=== PATIENT | male | born 1935 | race Caucasian/White ===

== ENCOUNTER 2018-02-08 20:21 | Inpatient (IN) | payer MEDICARE, OTHER ==
[~2018-02-08] VITALS: Ht 170.2 cm; Wt 75.8 kg
[2018-02-08] MEDS ORDERED: AMLODIPINE BESYL5 MG ORAL (20:27)
[2018-02-08] MEDS ORDERED: IPRATROPIU0.2 MG/1 M HHN (20:27)
[2018-02-08] MEDS ORDERED: MINERAL OIL25 ML TP (20:27)
[2018-02-08] MEDS ORDERED: VITAMIN D1000 UNI1 ORAL (20:27)
[2018-02-08] MEDS ORDERED: PRAVASTATIN SOD20 M1 ORAL (20:27)
[2018-02-08] MEDS ORDERED: SINEMET 25-1001 EAC1 ORAL (20:27)
[2018-02-08] MEDS ORDERED: EXELON1 EACH TD (20:27)
[2018-02-08] MEDS ORDERED: ZANTAC150 MG ORAL (20:29)
[2018-02-08] MEDS ORDERED: PLAVIX75 MG ORAL (20:29)
[2018-02-08] MEDS ORDERED: DEXILANT60 MG ORAL (20:29)
[2018-02-08] MEDS ORDERED: ATORVASTATIN CA20 MG ORAL (20:29)
[2018-02-08 21:16] LABS: HEMATOCRIT 42.4 % (42.0-52.0); HEMOGLOBIN 14.5 G/DL (14.2-18.0); MEAN CORPUSCULAR VOLUME 92 FL (80-99); PLATELET COUNT 160 K/UL (150-450); RED BLOOD COUNT 4.63 M/UL (4.70-6.10); WHITE BLOOD COUNT 2.4 K/UL (4.8-10.8)
[2018-02-08 21:26] LABS: ANION GAP 13 mmol/L (5-15); BLOOD UREA NITROGEN 46 mg/dL (7-18); CALCIUM 9.6 MG/DL (8.5-10.1); CARBON DIOXIDE 26 MMOL/L (21-32); CHLORIDE 105 MMOL/L (98-107); CREATININE 2.4 MG/DL (0.55-1.30); POTASSIUM 4.2 MMOL/L (3.5-5.1); SODIUM 143 MMOL/L (136-145)
[2018-02-08 21:40] LABS: ALANINE AMINOTRANSFERASE 24 U/L (12-78); ALBUMIN 2.6 G/DL (3.4-5.0); ALBUMIN/GLOBULIN RATIO 0.6 (1.0-2.7); ALKALINE PHOSPHATASE 103 U/L (46-116); ASPARTATE AMINO TRANSFERASE 51 U/L (15-37); BILIRUBIN,TOTAL 1.5 MG/DL (0.2-1.0); CKMB 2.9 NG/ML (0.0-3.6); CREATINE KINASE 734 U/L (26-308)
[2018-02-08 21:41] LABS: BILIRUBIN,DIRECT 0.5 MG/DL (0.0-0.3)
[2018-02-08] MEDS ORDERED: Ampicillin/Sulbactam Sod 3 GM in NS 110 ML IVPB ONE (22:00)
[2018-02-08] MEDS ORDERED: Vancomycin 1.5gm/D5W 250ml 250 ML IVPB ONE (23:30)
--- NOTE | 2018-02-08 23:41 | Emergency Room Report ---
History of Present Illness General Chief Complaint: Dyspnea/Respdistress Source: Medical Record Present Illness HPI Patient is a 82-year-old male brought in by EMS after decreased oxygen saturation. The [facility] was [facility]. Patient was noted to have prior history of severe dementia. He was noted to have the slightly increased altered mental status and increased difficulty with respirations. Patient was noted to have low oxygen saturation was started on supplemental oxygen by EMS. The patient had prior history of aspiration pneumonia. Allergies: Coded Allergies: No Known Allergies (Unverified , 02/08/18) Patient History Past Medical History: see triage record Reviewed Nursing Documentation: PMH: Agreed; PSxH: Agreed Nursing Documentation-PMH Hx Hypertension: Yes - hyperlipidemia, anemia, biliary stent obstruction Review of Systems All Other Systems: limited - by mental status Physical Exam Vital Signs Date Time Temp Pulse Resp B/P (MAP) Pulse Ox O2 Delivery O2 Flow Rate FiO2 02/08/18 20:21 99.0 97 12 130/79 90 Non-Rebreather 10.0 99.0 02/08/18 22:33 100 Sp02 EP Interpretation: reviewed, normal General Appearance: normal inspection, alert, moderate distress, thin, Chronically Ill Head: atraumatic ENT: normal voice, uvula midline, dry mucus membranes Neck: normal inspection, supple, no bony tend, limited range of motion Respiratory: normal inspection, no retraction, decreased breath sounds Cardiovascular #1: no edema, tachycardia, irregularly irregular Gastrointestinal: soft, tenderness Genitourinary: no CVA tenderness Musculoskeletal: normal inspection, back normal Neurologic: normal inspection, motor weakness, other - nonverbal Psychiatric: other - flat affect Skin: normal inspection, normal color, no rash Medical Decision Making Diagnostic Impression: Primary Impression: Pneumonia Additional Impressions: Lactic acid acidosis Hypoxemia Acute renal failure Atrial fibrillation ER Course Patient presented for desaturation. Differential included but was not limited to anemia, pneumonia, pneumothorax, myocardial infarction, pericardial effusion , congestive heart failure, acidosis. Because of complexity of patient's case laboratory testing and imaging studies were ordered. Laboratory testing was notable for low white blood count and bandemia consistent with acute infection. The patient started on IV antibiotics. The patient was started on IV fluids and BiPAP. Patient was discussed with Dr. Lopze who requested patient be admitted to Dr. Rueda. Dr. Rueda was contacted for inpatient management due to complexity of medical condition. Labs Test 02/08/18 20:40 02/08/18 20:43 White Blood Count 2.4 K/UL (4.8-10.8) Red Blood Count 4.63 M/UL (4.70-6.10) Hemoglobin 14.5 G/DL (14.2-18.0) Hematocrit 42.4 % (42.0-52.0) Mean Corpuscular Volume 92 FL (80-99) Mean Corpuscular Hemoglobin 31.3 PG (27.0-31.0) Mean Corpuscular Hemoglobin Concent 34.1 G/DL (32.0-36.0) Red Cell Distribution Width 13.0 % (11.6-14.8) Platelet Count 160 K/UL (150-450) Mean Platelet Volume 8.3 FL (6.5-10.1) Neutrophils (%) (Auto) % (45.0-75.0) Lymphocytes (%) (Auto) % (20.0-45.0) Monocytes (%) (Auto) % (1.0-10.0) Eosinophils (%) (Auto) % (0.0-3.0) Basophils (%) (Auto) % (0.0-2.0) Differential Total Cells Counted 100 Neutrophils % (Manual) 27 % (45-75) Lymphocytes % (Manual) 36 % (20-45) Monocytes % (Manual) 8 % (1-10) Eosinophils % (Manual) 0 % (0-3) Basophils % (Manual) 0 % (0-2) Metamyelocytes % 3 % (0-0) Band Neutrophils 26 % (0-8) Nucleated Red Blood Cells 2 /100 WBC Platelet Estimate Adequate Platelet Morphology Normal Clumped Platelets Occasional Polychromasia 1+ Sodium Level 143 MMOL/L (136-145) Potassium Level 4.2 MMOL/L (3.5-5.1) Chloride Level 105 MMOL/L (98-107) Carbon Dioxide Level 26 MMOL/L (21-32) Anion Gap 13 mmol/L (5-15) Blood Urea Nitrogen 46 mg/dL (7-18) Creatinine 2.4 MG/DL (0.55-1.30) Estimat Glomerular Filtration Rate mL/min (>60) Glucose Level 187 MG/DL (74-106) Lactic Acid Level 6.60 mmol/L (0.66-2.22) Calcium Level 9.6 MG/DL (8.5-10.1) Total Bilirubin 1.5 MG/DL (0.2-1.0) Direct Bilirubin 0.5 MG/DL (0.0-0.3) Aspartate Amino Transf (AST/SGOT) 51 U/L (15-37) Alanine Aminotransferase (ALT/SGPT) 24 U/L (12-78) Alkaline Phosphatase 103 U/L (46-116) Total Creatine Kinase 734 U/L (26-308) Creatine Kinase MB 2.9 NG/ML (0.0-3.6) Creatine Kinase MB Relative Index 0.3 Troponin I 0.021 ng/mL (0.000-0.056) Total Protein 6.7 G/DL (6.4-8.2) Albumin 2.6 G/DL (3.4-5.0) Globulin 4.1 g/dL Albumin/Globulin Ratio 0.6 (1.0-2.7) Arterial Blood pH 7.480 (7.350-7.450) Arterial Blood Partial Pressure CO2 27.5 mmHg (35.0-45.0) Arterial Blood Partial Pressure O2 66.5 mmHg (75.0-100.0) Arterial Blood HCO3 20.1 mmol/L (22.0-26.0) Arterial Blood Oxygen Saturation 92.7 % (92.0-98.0) Arterial Blood Base Excess -1.9 Isaias Test Positive EKG Diagnostic Results Rate: tachycardiac Rhythm: other - afib Chest X-Ray Diagnostic Results Chest X-Ray Diagnostic Results : Chest X-Ray Ordered: Yes # of Views/Limited/Complete: 1 View Indication: Shortness of Breath EP Interpretation: Yes Interpretation: no effusion, no pneumothorax, other - bilateral infiltrates Impression: Other Electronically Signed by: Electronically signed by Dr. Kp Robin M.D. Last Vital Signs Date Time Temp Pulse Resp B/P (MAP) Pulse Ox O2 Delivery O2 Flow Rate FiO2 02/08/18 22:35 116 24 Bi-pap 100 02/08/18 22:33 94 02/08/18 20:33 10.0 02/08/18 20:21 99.0 130/79 99.0 Status: unchanged Disposition: ADMITTED INPATIENT Condition: Critical Referrals: Jose Lopez MD (PCP) Kp Robin Feb 08, 2018 23:41
[2018-02-08] MEDS ORDERED: NS 1000ml 2,200 ML IVLG ONE (23:45)
[2018-02-09] VITALS (27 sets, daily range): BP systolic 77–152; BP diastolic 30–98
[2018-02-09] MEDS ORDERED: Albuterol/Ipratropium 3ml neb HHN PRN (00:15)
[2018-02-09] MEDS ORDERED: LORazepam Inj 2mg/ml 1ml IV PRN (00:15)
[2018-02-09] MEDS ORDERED: Miralax 17gm pkt ORAL PRN (00:15)
[2018-02-09] MEDS ORDERED: Morphine Sulfate 4mg/ml Inj IVP PRN (00:15)
[2018-02-09] MEDS ORDERED: dilTIAZem HCl 25mg/5ml Inj IVP ONE ×3 (00:45→02:00)
[2018-02-09] MEDS ORDERED: dilTIAZem HCl 125mg/25ml Inj IVPB ONE (00:46)
[2018-02-09] MEDS ORDERED: Digoxin 0.5mg/2ml Inj IVP ONE ×2 (00:50→01:00)
[2018-02-09 01:39] LABS: APPEARANCE,URINE CLOUDY; BILIRUBIN, URINE 1+ (NEGATIVE); GLUCOSE, URINE (UA) 1+ (NEGATIVE); KETONES,URINE 1+ (NEGATIVE); LEUKOCYTE ESTERASE ,URINE 1+ (NEGATIVE); NITRITE,URINE NEGATIVE (NEGATIVE); PH,URINE 5 (4.5-8.0); PROTEIN,URINE 3+ (NEGATIVE); UROBILINOGEN,URINE 1 MG/DL (0.0-1.0)
[2018-02-09 02:14] LABS: COLOR,URINE YELLOW
[2018-02-09] MEDS ORDERED: Cefepime 1gm in D5W 55ml IVPB SCH ×2 (03:00→09:00)
[2018-02-09] MEDS: dilTIAZem HCl 25mg/5ml Inj IV PRN ×3 (03:32→09:57)
[2018-02-09] MEDS: Heparin 5000 units/ml inj SUBQ SCH ×2 (08:59→20:27)
[2018-02-09] MEDS ORDERED: Cefepime HCl 2 GM in D5W 110 ML IV SCH (09:00)
--- NOTE | 2018-02-09 10:11 | History and Physical ---
History of Present Illness General Date patient seen: Feb 09, 2018 Reason for Hospitalization: Dyspnea/Respdistress Present Illness HPI 82-year-old male with hx of Parkinson disease, Dementia, afib, pressure Ulcer brought in from a longterm by EMS with CC of decreased oxygen saturation. He was in respiratory failure and was diagnosed to have bilateral pneumonia. He had low oxygen saturation, then was started on supplemental oxygen by EMS. He was put on BIPAP in ER which helped the oxygenation somewhat. He is transferred to ICU for further treatment. Allergies: Coded Allergies: No Known Allergies (Unverified , 02/08/18) Medication History Scheduled Amlodipine Besylate* (Amlodipine Besylate*), 5 MG ORAL DAILY, (Reported) Atorvastatin Calcium* (Atorvastatin Calcium*), 20 MG ORAL BEDTIME, (Reported) Carbidopa/Levodopa 25-100 Mg* (Sinemet 25-100 Mg Tablet*), 1 TAB ORAL BID, ( Reported) Cholecalciferol (Vitamin D3)* (Vitamin D*), 2,000 UNITS ORAL DAILY, (Reported) Clopidogrel Bisulfate* (Plavix*), 75 MG ORAL DAILY, (Reported) Dexlansoprazole (Dexilant), 60 MG ORAL DAILY, (Reported) Pravastatin Sod* (Pravastatin Sod*), 80 MG ORAL BEDTIME, (Reported) Ranitidine Hcl* (Zantac*), 300 MG ORAL DAILY, (Reported) Scheduled PRN Ipratropium [place] 0.5MG/2.5ML (Ipratropium [place] 0.5MG/2.5ML), 0.5 MG HHN Q6H PRN for Shortness of Breath, (Reported) Miscellaneous Medications Mineral Oil (Mineral Oil), 30 ML TP, (Reported) Rivastigmine (Exelon), 1 EACH TD, (Reported) Patient History Healthcare decision maker TATI AGUILAR Resuscitation status Do Not Resuscitate Advanced Directive on File No Past Medical/Surgical History Past Medical/Surgical History: (1) Parkinson disease (2) Dementia (3) Atrial fibrillation Review of Systems All Other Systems: negative except mentioned in HPI Physical Exam General Appearance: cachetic Lines, tubes and drains: peripheral HEENT: normocephalic, atraumatic Neck: non-tender, normal alignment Respiratory/Chest: chest wall non-tender, lungs clear, rhonchi - left, rhonchi - right Breasts: no masses Cardiovascular/Chest: normal peripheral pulses Abdomen: normal bowel sounds Genitourinary/Rectal: normal genital exam Extremities: normal range of motion Last 24 Hour Vital Signs Date Time Temp Pulse Resp B/P (MAP) Pulse Ox O2 Delivery O2 Flow Rate FiO2 02/09/18 09:57 168 120/29 02/09/18 09:25 146 35 Full Face 100 02/09/18 09:00 146 35 99/62 91 Bi-pap 100 02/09/18 08:41 100.4 02/09/18 08:00 100 02/09/18 08:00 151 34 99/64 96 Bi-pap 100 02/09/18 07:55 158 109/65 02/09/18 07:25 153 35 Facial 100 02/09/18 07:00 100.4 140 29 109/65 94 Bi-pap 100 100.4 02/09/18 06:00 147 32 116/77 96 Bi-pap 100 02/09/18 05:30 153 32 103/57 92 Bi-pap 100 02/09/18 05:00 98.9 144 29 79/41 95 Bi-pap 100 98.9 02/09/18 04:56 142 29 Facial 100 02/09/18 04:30 144 30 86/72 90 Bi-pap 100 02/09/18 04:00 136 29 77/53 90 Bi-pap 100 02/09/18 03:32 151 141/88 02/09/18 03:30 148 30 141/88 90 Bi-pap 100 02/09/18 03:00 145 26 141/98 90 Bi-pap 100 02/09/18 03:00 150 02/09/18 03:00 100 02/09/18 02:45 98.8 150 28 152/86 90 Bi-pap 100 98.8 02/09/18 02:39 163 33 Facial 100 02/09/18 02:30 88/56 02/09/18 02:30 100.0 132 32 89/59 98 Bi-pap 100.0 02/09/18 02:16 184 02/09/18 02:14 174 109/78 02/09/18 01:02 188 02/09/18 01:01 182 102/33 02/09/18 00:53 130 32 98 Facial 100 02/09/18 00:45 98.0 188 32 102/89 98 Bi-pap 98.0 02/08/18 22:35 116 24 Bi-pap 100 02/08/18 22:33 116 24 94 Facial 100 02/08/18 20:33 97 12 Non-Rebreather 10.0 02/08/18 20:21 99.0 97 12 130/79 90 Non-Rebreather 10.0 99.0 Intake and Output 02/08/18 02/09/18 19:00 07:00 Intake Total 100 ml Output Total 60 ml Balance 40 ml Intake Oral 0 ml IV Total 100 ml Output Urine Total 60 ml Laboratory Tests Test 02/08/18 20:40 02/08/18 20:43 02/09/18 01:20 02/09/18 01:58 White Blood Count 2.4 K/UL (4.8-10.8) L Red Blood Count 4.63 M/UL (4.70-6.10) L Hemoglobin 14.5 G/DL (14.2-18.0) Hematocrit 42.4 % (42.0-52.0) Mean Corpuscular Volume 92 FL (80-99) Mean Corpuscular Hemoglobin 31.3 PG (27.0-31.0) H Mean Corpuscular Hemoglobin Concent 34.1 G/DL (32.0-36.0) Red Cell Distribution Width 13.0 % (11.6-14.8) Platelet Count 160 K/UL (150-450) Mean Platelet Volume 8.3 FL (6.5-10.1) Neutrophils (%) (Auto) % (45.0-75.0) Lymphocytes (%) (Auto) % (20.0-45.0) Monocytes (%) (Auto) % (1.0-10.0) Eosinophils (%) (Auto) % (0.0-3.0) Basophils (%) (Auto) % (0.0-2.0) Differential Total Cells Counted 100 Neutrophils % (Manual) 27 % (45-75) L Lymphocytes % (Manual) 36 % (20-45) Monocytes % (Manual) 8 % (1-10) Eosinophils % (Manual) 0 % (0-3) Basophils % (Manual) 0 % (0-2) Metamyelocytes % 3 % (0-0) H Band Neutrophils 26 % (0-8) H Nucleated Red Blood Cells 2 /100 WBC Platelet Estimate Adequate Platelet Morphology Normal Clumped Platelets Occasional Polychromasia 1+ Sodium Level 143 MMOL/L (136-145) Potassium Level 4.2 MMOL/L (3.5-5.1) Chloride Level 105 MMOL/L (98-107) Carbon Dioxide Level 26 MMOL/L (21-32) Anion Gap 13 mmol/L (5-15) Blood Urea Nitrogen 46 mg/dL (7-18) H Creatinine 2.4 MG/DL (0.55-1.30) H Estimat Glomerular Filtration Rate mL/min (>60) Glucose Level 187 MG/DL (74-106) H Lactic Acid Level 6.60 mmol/L (0.66-2.22) H 4.80 mmol/L (0.66-2.22) H Calcium Level 9.6 MG/DL (8.5-10.1) Total Bilirubin 1.5 MG/DL (0.2-1.0) H Direct Bilirubin 0.5 MG/DL (0.0-0.3) H Aspartate Amino Transf (AST/SGOT) 51 U/L (15-37) H Alanine Aminotransferase (ALT/SGPT) 24 U/L (12-78) Alkaline Phosphatase 103 U/L (46-116) Total Creatine Kinase 734 U/L (26-308) H Creatine Kinase MB 2.9 NG/ML (0.0-3.6) Creatine Kinase MB Relative Index 0.3 Troponin I 0.021 ng/mL (0.000-0.056) Total Protein 6.7 G/DL (6.4-8.2) Albumin 2.6 G/DL (3.4-5.0) L Globulin 4.1 g/dL Albumin/Globulin Ratio 0.6 (1.0-2.7) L Arterial Blood pH 7.480 (7.350-7.450) Arterial Blood Partial Pressure CO2 27.5 mmHg (35.0-45.0) L Arterial Blood Partial Pressure O2 66.5 mmHg (75.0-100.0) L Arterial Blood HCO3 20.1 mmol/L (22.0-26.0) L Arterial Blood Oxygen Saturation 92.7 % (92.0-98.0) Arterial Blood Base Excess -1.9 Isaias Test Positive Urine Color Yellow Urine Appearance Cloudy Urine pH 5 (4.5-8.0) Urine Specific [place] 1.025 (1.005-1.035) Urine Protein 3+ (NEGATIVE) H Urine Glucose (UA) 1+ (NEGATIVE) H Urine Ketones 1+ (NEGATIVE) H Urine Occult Blood 4+ (NEGATIVE) H Urine Nitrite Negative (NEGATIVE) Urine Bilirubin 1+ (NEGATIVE) H Urine Ictotest Positive Urine Urobilinogen 1 MG/DL (0.0-1.0) H Urine Leukocyte Esterase 1+ (NEGATIVE) H Urine RBC 0-2 /HPF (0 - 0) H Urine WBC 0-2 /HPF (0 - 0) Urine Squamous Epithelial Cells Few /LPF (NONE/OCC) Urine Amorphous Sediment Many /LPF (NONE) H Urine Bacteria Moderate /HPF (NONE) H Urine Coarse Granular Casts 5-10 /LPF (NONE) H Test 02/09/18 05:30 02/09/18 08:30 Lactic Acid Level 7.40 mmol/L (0.66-2.22) H Arterial Blood pH 7.080 (7.350-7.450) Arterial Blood Partial Pressure CO2 49.5 mmHg (35.0-45.0) H Arterial Blood Partial Pressure O2 58.5 mmHg (75.0-100.0) L Arterial Blood HCO3 14.4 mmol/L (22.0-26.0) L Arterial Blood Oxygen Saturation 78.5 % (92.0-98.0) L Arterial Blood Base Excess -15.4 Isaias Test Positive Height (Feet): 5 Height (Inches): 7.00 Weight (Pounds): 147 Medications Current Medications Medications (Trade) Dose Ordered Sig/Dax Route PRN Reason Start Time Stop Time Status Last Admin Dose Admin Acetaminophen (Tylenol) 650 mg Q4H PRN ORAL FEVER 02/09/18 00:15 03/11/18 00:14 02/09/18 08:41 Albuterol/ Ipratropium (Albuterol/ Ipratropium) 3 ml Q4H PRN HHN Shortness of Breath 02/09/18 00:15 02/14/18 00:14 Carbidopa/Levodopa (Sinemet 25/100) 1 tab BID ORAL 02/09/18 09:00 03/11/18 08:59 UNV Cefepime HCl 1 gm/ Dextrose 55 ml @ 110 mls/hr Q24H IVPB 02/09/18 09:00 02/16/18 08:59 02/09/18 08:57 Clopidogrel Bisulfate (Plavix) 75 mg DAILY ORAL 02/09/18 09:00 03/11/18 08:59 02/09/18 08:41 Dextrose (Dextrose 50%) 25 ml STAT PRN IV Hypoglycemia 02/09/18 08:45 03/11/18 00:14 Dextrose (Dextrose 50%) 50 ml STAT PRN IV Hypoglycemia 02/09/18 08:45 03/11/18 08:44 Diltiazem HCl (Cardizem) 10 mg Q1H PRN IV heart rate more than 120, 02/09/18 00:15 03/11/18 00:14 02/09/18 09:57 Heparin Sodium (Porcine) (Heparin 5000 units/ml) 5,000 units EVERY 12 HOURS SUBQ 02/09/18 09:00 03/11/18 08:59 02/09/18 08:59 Lorazepam (Ativan 2mg/ml 1ml) 2 mg Q2H PRN IV For Anxiety 02/09/18 00:15 02/16/18 00:14 Morphine Sulfate (Morphine Sulfate) 4 mg Q4H PRN IVP Severe Pain (Pain Scale 7-10) 02/09/18 00:15 02/16/18 00:14 Ondansetron HCl (Zofran) 4 mg Q6H PRN IVP Nausea & Vomiting 02/09/18 00:15 03/11/18 00:14 Polyethylene Glycol (Miralax) 17 gm DAILYPRN PRN ORAL Constipation 02/09/18 00:15 03/11/18 00:14 Sodium Chloride 1,000 ml @ 50 mls/hr Q20H IV 02/09/18 00:07 03/11/18 00:06 02/09/18 04:00 Vancomycin HCl (Vanco rx to dose) 1 ea DAILY PRN MISC PER RX PROTOCOL 02/09/18 08:45 03/11/18 08:44 Vancomycin HCl 1 gm/Dextrose 275 ml @ 183.3 mls/ hr Q24H IVPB 02/09/18 23:00 02/14/18 22:59 Assessment/Plan Problem List: (1) Acute respiratory failure ICD Codes: J96.00 - Acute respiratory failure, unspecified whether with hypoxia or hypercapnia SNOMED: 03942736 (2) Acute encephalopathy ICD Codes: G93.40 - Encephalopathy, unspecified SNOMED: 01313827, 449093694 (3) Atrial fibrillation ICD Codes: I48.91 - Unspecified atrial fibrillation SNOMED: 98783562 (4) Acute renal failure ICD Codes: N17.9 - Acute kidney failure, unspecified SNOMED: 19492111 (5) Parkinson disease ICD Codes: G20 - Parkinson's disease SNOMED: 84029553 (6) Dementia ICD Codes: F03.90 - Unspecified dementia without behavioral disturbance SNOMED: 05283861 Respiratory: monitor respiratory rate, adjust FIO2 Cardiac: continue to monitor HR/BP Renal: F/U I&O, keep IV fluid, check electrolytes Infectious Disease: check cultures Gastrointestinal: hold feedings Endocrine: monitor blood sugar Hematologic: monitor H/H, transfuse if hgb<8.5 Neurologic: PRN Ativan, PRN Morphine, keep patient comfortable Time Spent (Minutes): 40 Notes Reviewed: renal Discussed with: nurses, consultants, insurance case manager, family member Samra Rueda MD Feb 09, 2018 10:11
[2018-02-09 10:26] LABS: ANION GAP 15 mmol/L (5-15); BLOOD UREA NITROGEN 45 mg/dL (7-18); CALCIUM 7.9 MG/DL (8.5-10.1); CARBON DIOXIDE 17 MMOL/L (21-32); CHLORIDE 111 MMOL/L (98-107); CREATININE 2.3 MG/DL (0.55-1.30); POTASSIUM 4.5 MMOL/L (3.5-5.1); SODIUM 143 MMOL/L (136-145)
--- NOTE | 2018-02-09 10:34 | Diagnostic Imaging Report ---
Indication: Shortness of breath Technique: One view of the chest Comparison: none Findings: There are bilateral patchy and nodular interstitial and airspace opacities. The pleural spaces are clear. The heart size is normal. The aorta is tortuous and calcified. Impression: Bilateral patchy nodular interstitial and airspace opacities. Nonspecific, could represent inflammatory process, pulmonary edema, less likely neoplasm. Recommend follow-up radiographs as clinically indicated
[2018-02-09 10:37] LABS: ALANINE AMINOTRANSFERASE 21 U/L (12-78); ALBUMIN 1.8 G/DL (3.4-5.0); ALBUMIN/GLOBULIN RATIO 0.7 (1.0-2.7); ALKALINE PHOSPHATASE 77 U/L (46-116); ASPARTATE AMINO TRANSFERASE 56 U/L (15-37); BILIRUBIN,TOTAL 0.9 MG/DL (0.2-1.0); CREATINE KINASE 694 U/L (26-308); GAMMA GLUTAMYL TRANSPEPTIDASE 15 U/L (5-85); PHOSPHORUS 3.8 MG/DL (2.5-4.9)
[2018-02-09] MEDS ORDERED: Pantoprazole Inj IVP SCH (11:15)
--- NOTE | 2018-02-09 11:42 | Consultation ---
History of Present Illness General Date patient seen: Feb 09, 2018 Time patient seen: 11:23 Chief Complaint: Dyspnea/Respdistress Present Illness HPI 82 y/o M with hx of HTN, HLD, anemia, aspiration pneumonia, Parkinson disease/ dementia, Afib, pressure ulcer, biliary tract obstruction s/p stent, prison resident is brought to ED on 02/08 with hypoxia, increased AMS and SOB. In Ed placed on BIpap and admitted to ICU. Patient also developed rapid Afib. Tm 100.9, on Bipap, Leuopenia with >20% bandemia. Allergies: Coded Allergies: No Known Allergies (Unverified , 02/08/18) Medication History Scheduled Amlodipine Besylate* (Amlodipine Besylate*), 5 MG ORAL DAILY, (Reported) Atorvastatin Calcium* (Atorvastatin Calcium*), 20 MG ORAL BEDTIME, (Reported) Carbidopa/Levodopa 25-100 Mg* (Sinemet 25-100 Mg Tablet*), 1 TAB ORAL BID, ( Reported) Cholecalciferol (Vitamin D3)* (Vitamin D*), 2,000 UNITS ORAL DAILY, (Reported) Clopidogrel Bisulfate* (Plavix*), 75 MG ORAL DAILY, (Reported) Dexlansoprazole (Dexilant), 60 MG ORAL DAILY, (Reported) Pravastatin Sod* (Pravastatin Sod*), 80 MG ORAL BEDTIME, (Reported) Ranitidine Hcl* (Zantac*), 300 MG ORAL DAILY, (Reported) Scheduled PRN Ipratropium [place] 0.5MG/2.5ML (Ipratropium [place] 0.5MG/2.5ML), 0.5 MG HHN Q6H PRN for Shortness of Breath, (Reported) Miscellaneous Medications Mineral Oil (Mineral Oil), 30 ML TP, (Reported) Rivastigmine (Exelon), 1 EACH TD, (Reported) Patient History Healthcare decision maker TATI AGUILAR Resuscitation status Do Not Resuscitate Advanced Directive on File No Patient History Narrative PMhx: as above Shx: unable to obtain Fhx: non contributory Review of Systems ROS Narrative unable to obtain Physical Exam Physical Exam Narrative General Appearance: cachetic Lines, tubes and drains: peripheral HEENT: normocephalic, atraumatic Neck: non-tender, normal alignment Respiratory/Chest: chest wall non-tender, lungs clear, rhonchi - left, rhonchi - right Breasts: no masses Cardiovascular/Chest: normal peripheral pulses Abdomen: normal bowel sounds Extremities: normal range of motion Last 24 Hour Vital Signs Date Time Temp Pulse Resp B/P (MAP) Pulse Ox O2 Delivery O2 Flow Rate FiO2 02/09/18 10:59 146 35 91 Full Face 100 02/09/18 10:00 152 34 100/30 88 Bi-pap 100 02/09/18 09:57 168 120/29 02/09/18 09:40 100.9 02/09/18 09:25 146 35 Full Face 100 02/09/18 09:00 146 35 99/62 91 Bi-pap 100 02/09/18 08:41 100.4 02/09/18 08:00 100 02/09/18 08:00 151 34 99/64 96 Bi-pap 100 02/09/18 08:00 124 02/09/18 07:55 158 109/65 02/09/18 07:25 153 35 Facial 100 02/09/18 07:00 100.4 140 29 109/65 94 Bi-pap 100 100.4 02/09/18 06:00 147 32 116/77 96 Bi-pap 100 02/09/18 05:30 153 32 103/57 92 Bi-pap 100 02/09/18 05:00 98.9 144 29 79/41 95 Bi-pap 100 98.9 02/09/18 04:56 142 29 Facial 100 02/09/18 04:30 144 30 86/72 90 Bi-pap 100 02/09/18 04:00 136 29 77/53 90 Bi-pap 100 02/09/18 03:32 151 141/88 02/09/18 03:30 148 30 141/88 90 Bi-pap 100 02/09/18 03:00 145 26 141/98 90 Bi-pap 100 02/09/18 03:00 150 02/09/18 03:00 100 02/09/18 02:45 98.8 150 28 152/86 90 Bi-pap 100 98.8 02/09/18 02:39 163 33 Facial 100 02/09/18 02:30 88/56 02/09/18 02:30 100.0 132 32 89/59 98 Bi-pap 100.0 02/09/18 02:16 184 02/09/18 02:14 174 109/78 02/09/18 01:02 188 02/09/18 01:01 182 102/33 02/09/18 00:53 130 32 98 Facial 100 02/09/18 00:45 98.0 188 32 102/89 98 Bi-pap 98.0 02/08/18 22:35 116 24 Bi-pap 100 02/08/18 22:33 116 24 94 Facial 100 02/08/18 20:33 97 12 Non-Rebreather 10.0 02/08/18 20:21 99.0 97 12 130/79 90 Non-Rebreather 10.0 99.0 Intake and Output 02/08/18 02/09/18 19:00 07:00 Intake Total 150 ml Output Total 60 ml Balance 90 ml Intake Oral 0 ml IV Total 150 ml Output Urine Total 60 ml Laboratory Tests Test 02/08/18 20:40 02/08/18 20:43 02/09/18 01:20 02/09/18 01:58 White Blood Count 2.4 K/UL (4.8-10.8) L Red Blood Count 4.63 M/UL (4.70-6.10) L Hemoglobin 14.5 G/DL (14.2-18.0) Hematocrit 42.4 % (42.0-52.0) Mean Corpuscular Volume 92 FL (80-99) Mean Corpuscular Hemoglobin 31.3 PG (27.0-31.0) H Mean Corpuscular Hemoglobin Concent 34.1 G/DL (32.0-36.0) Red Cell Distribution Width 13.0 % (11.6-14.8) Platelet Count 160 K/UL (150-450) Mean Platelet Volume 8.3 FL (6.5-10.1) Neutrophils (%) (Auto) % (45.0-75.0) Lymphocytes (%) (Auto) % (20.0-45.0) Monocytes (%) (Auto) % (1.0-10.0) Eosinophils (%) (Auto) % (0.0-3.0) Basophils (%) (Auto) % (0.0-2.0) Differential Total Cells Counted 100 Neutrophils % (Manual) 27 % (45-75) L Lymphocytes % (Manual) 36 % (20-45) Monocytes % (Manual) 8 % (1-10) Eosinophils % (Manual) 0 % (0-3) Basophils % (Manual) 0 % (0-2) Metamyelocytes % 3 % (0-0) H Band Neutrophils 26 % (0-8) H Nucleated Red Blood Cells 2 /100 WBC Platelet Estimate Adequate Platelet Morphology Normal Clumped Platelets Occasional Polychromasia 1+ Sodium Level 143 MMOL/L (136-145) Potassium Level 4.2 MMOL/L (3.5-5.1) Chloride Level 105 MMOL/L (98-107) Carbon Dioxide Level 26 MMOL/L (21-32) Anion Gap 13 mmol/L (5-15) Blood Urea Nitrogen 46 mg/dL (7-18) H Creatinine 2.4 MG/DL (0.55-1.30) H Estimat Glomerular Filtration Rate mL/min (>60) Glucose Level 187 MG/DL (74-106) H Lactic Acid Level 6.60 mmol/L (0.66-2.22) H 4.80 mmol/L (0.66-2.22) H Calcium Level 9.6 MG/DL (8.5-10.1) Total Bilirubin 1.5 MG/DL (0.2-1.0) H Direct Bilirubin 0.5 MG/DL (0.0-0.3) H Aspartate Amino Transf (AST/SGOT) 51 U/L (15-37) H Alanine Aminotransferase (ALT/SGPT) 24 U/L (12-78) Alkaline Phosphatase 103 U/L (46-116) Total Creatine Kinase 734 U/L (26-308) H Creatine Kinase MB 2.9 NG/ML (0.0-3.6) Creatine Kinase MB Relative Index 0.3 Troponin I 0.021 ng/mL (0.000-0.056) Total Protein 6.7 G/DL (6.4-8.2) Albumin 2.6 G/DL (3.4-5.0) L Globulin 4.1 g/dL Albumin/Globulin Ratio 0.6 (1.0-2.7) L Arterial Blood pH 7.480 (7.350-7.450) Arterial Blood Partial Pressure CO2 27.5 mmHg (35.0-45.0) L Arterial Blood Partial Pressure O2 66.5 mmHg (75.0-100.0) L Arterial Blood HCO3 20.1 mmol/L (22.0-26.0) L Arterial Blood Oxygen Saturation 92.7 % (92.0-98.0) Arterial Blood Base Excess -1.9 Isaias Test Positive Urine Color Yellow Urine Appearance Cloudy Urine pH 5 (4.5-8.0) Urine Specific [place] 1.025 (1.005-1.035) Urine Protein 3+ (NEGATIVE) H Urine Glucose (UA) 1+ (NEGATIVE) H Urine Ketones 1+ (NEGATIVE) H Urine Occult Blood 4+ (NEGATIVE) H Urine Nitrite Negative (NEGATIVE) Urine Bilirubin 1+ (NEGATIVE) H Urine Ictotest Positive Urine Urobilinogen 1 MG/DL (0.0-1.0) H Urine Leukocyte Esterase 1+ (NEGATIVE) H Urine RBC 0-2 /HPF (0 - 0) H Urine WBC 0-2 /HPF (0 - 0) Urine Squamous Epithelial Cells Few /LPF (NONE/OCC) Urine Amorphous Sediment Many /LPF (NONE) H Urine Bacteria Moderate /HPF (NONE) H Urine Coarse Granular Casts 5-10 /LPF (NONE) H Test 02/09/18 05:30 02/09/18 08:30 02/09/18 11:00 Sodium Level 143 MMOL/L (136-145) Potassium Level 4.5 MMOL/L (3.5-5.1) Chloride Level 111 MMOL/L (98-107) H Carbon Dioxide Level 17 MMOL/L (21-32) L Anion Gap 15 mmol/L (5-15) Blood Urea Nitrogen 45 mg/dL (7-18) H Creatinine 2.3 MG/DL (0.55-1.30) H Estimat Glomerular Filtration Rate mL/min (>60) Glucose Level 153 MG/DL (74-106) H Lactic Acid Level 7.40 mmol/L (0.66-2.22) H Pending Uric Acid 3.9 MG/DL (2.6-7.2) Calcium Level 7.9 MG/DL (8.5-10.1) L Phosphorus Level 3.8 MG/DL (2.5-4.9) Magnesium Level 1.8 MG/DL (1.8-2.4) Total Bilirubin 0.9 MG/DL (0.2-1.0) Gamma Glutamyl Transpeptidase 15 U/L (5-85) Aspartate Amino Transf (AST/SGOT) 56 U/L (15-37) H Alanine Aminotransferase (ALT/SGPT) 21 U/L (12-78) Alkaline Phosphatase 77 U/L (46-116) Total Creatine Kinase 694 U/L (26-308) H Troponin I 0.044 ng/mL (0.000-0.056) C-Reactive Protein, Quantitative 30.4 mg/dL (0.00-0.90) H Pro-B-Type Natriuretic Peptide 4579 pg/mL (0-125) H Total Protein 4.5 G/DL (6.4-8.2) #L Albumin 1.8 G/DL (3.4-5.0) L Globulin 2.7 g/dL Albumin/Globulin Ratio 0.7 (1.0-2.7) L Arterial Blood pH 7.080 (7.350-7.450) Arterial Blood Partial Pressure CO2 49.5 mmHg (35.0-45.0) H Arterial Blood Partial Pressure O2 58.5 mmHg (75.0-100.0) L Arterial Blood HCO3 14.4 mmol/L (22.0-26.0) L Arterial Blood Oxygen Saturation 78.5 % (92.0-98.0) L Arterial Blood Base Excess -15.4 Isaias Test Positive Height (Feet): 5 Height (Inches): 7.00 Weight (Pounds): 147 Medications Current Medications Medications (Trade) Dose Ordered Sig/Dax Route PRN Reason Start Time Stop Time Status Last Admin Dose Admin Acetaminophen (Tylenol) 650 mg Q4H PRN ORAL FEVER 02/09/18 00:15 03/11/18 00:14 02/09/18 08:41 Albuterol/ Ipratropium (Albuterol/ Ipratropium) 3 ml Q4H PRN HHN Shortness of Breath 02/09/18 00:15 02/14/18 00:14 Carbidopa/Levodopa (Sinemet 25/100) 1 tab BID ORAL 02/09/18 09:00 03/11/18 08:59 UNV Cefepime HCl 1 gm/ Dextrose 55 ml @ 110 mls/hr Q24H IVPB 02/09/18 09:00 02/16/18 08:59 02/09/18 08:57 Clopidogrel Bisulfate (Plavix) 75 mg DAILY ORAL 4/26/18 09:00 03/11/18 08:59 02/09/18 08:41 Dextrose (Dextrose 50%) 25 ml STAT PRN IV Hypoglycemia 02/09/18 08:45 03/11/18 00:14 Dextrose (Dextrose 50%) 50 ml STAT PRN IV Hypoglycemia 02/09/18 08:45 03/11/18 08:44 Diltiazem HCl (Cardizem) 10 mg Q1H PRN IV heart rate more than 120, 02/09/18 00:15 03/11/18 00:14 02/09/18 09:57 Heparin Sodium (Porcine) (Heparin 5000 units/ml) 5,000 units EVERY 12 HOURS SUBQ 02/09/18 09:00 03/11/18 08:59 02/09/18 08:59 Lorazepam (Ativan 2mg/ml 1ml) 2 mg Q2H PRN IV For Anxiety 02/09/18 00:15 02/16/18 00:14 Morphine Sulfate (Morphine Sulfate) 4 mg Q4H PRN IVP Severe Pain (Pain Scale 7-10) 02/09/18 00:15 02/16/18 00:14 Ondansetron HCl (Zofran) 4 mg Q6H PRN IVP Nausea & Vomiting 02/09/18 00:15 03/11/18 00:14 Pantoprazole (Protonix) 40 mg DAILY IVP 02/10/18 09:00 03/12/18 08:59 Pantoprazole (Protonix) 40 mg ONCE IVP 02/09/18 11:15 02/09/18 13:00 Polyethylene Glycol (Miralax) 17 gm DAILYPRN PRN ORAL Constipation 02/09/18 00:15 03/11/18 00:14 Sodium Chloride 1,000 ml @ 50 mls/hr Q20H IV 02/09/18 00:07 03/11/18 00:06 02/09/18 04:00 Vancomycin HCl (Vanco rx to dose) 1 ea DAILY PRN MISC PER RX PROTOCOL 02/09/18 08:45 03/11/18 08:44 Vancomycin HCl 1 gm/Dextrose 275 ml @ 183.3 mls/ hr Q24H IVPB 02/09/18 23:00 02/14/18 22:59 Assessment/Plan Assessment/Plan Abx: Unasyn x1 02/08 Cefepime 02/09- IV Vanco 02/08- Assessment: Severe sepsis- likely 2ry to PNA (Asp vs HCAP)- r/o bacteremia, r/o Flu -u/a WBC 0-2; ucx p -Bcx p -sp cx p -CXR: Bilateral patchy nodular interstitial and airspace opacities. Nonspecific, could represent inflammatory process, pulmonary edema, less likely neoplasm. Acute hypoxic resp failure- on bipap Lactic acidosis Low grade fever Leukopenia/bandemia ARI AFIB with RVR HTN HLD anemia aspiration pneumonia Parkinson disease/dementia pressure ulcer biliary tract obstruction s/p stent [facility] resident Plan: -Continue empiric IV Vancomcyin #2 and switch Cefepime #1 to Zosyn -Give one time dose of Amikacin -Start empiric Tamiflu pending influenza sc -f/u cx -Monitor CBC/BMP, temperatures -ICU care -Aspiration precautions -Trend lactic acid Thank you for this consultation. WIll continue to follow along with you. Discussed with Jailene Matias M.D. Feb 09, 2018 11:42
--- NOTE | 2018-02-09 11:43 | Diagnostic Imaging Report ---
Indication: Shortness of breath Technique: One view of the chest Comparison: 4 1/2 hours earlier the pleural spaces are probably clear. The heart size is upper limits of normal. Findings: There is marked increased dense consolidation of both mid and lower lungs bilaterally Impression: Marked worsening of bilateral infiltrates versus edema, over 4 1/2 hours
[2018-02-09] MEDS ORDERED: Amikacin Rx to dose MISC SCH (11:45)
--- NOTE | 2018-02-09 13:53 | Consultation ---
Consult Note Consult Note asked to evaluate for renal failure- Patient is a 82-year-old male brought in by EMS after decreased oxygen saturation. The patient was sent in from long-term. Patient was noted to have prior history of severe dementia. He was noted to have the slightly increased altered mental status and increased difficulty with respirations. Patient was noted to have low oxygen saturation was started on supplemental oxygen by EMS. The patient had prior history of aspiration pneumonia. patient examined in ICU - Data reviewed- discussed with and 2 Sons . Assessment/Plan Sepsis, CXR: Bilateral patchy nodular interstitial and airspace opacities. Nonspecific, could represent inflammatory process, pulmonary edema, less likely neoplasm. lactic Acidosis Acute respiratory failure, on BIPAP , Hypoxic Renal failure, acute on Chronic + Oliguria AFibwith FVR Parkinson disease/dementia pressure ulcer biliary tract obstruction s/p stent long-term resident Plan: Kidney REKHA 2D Echo Flomax Hemodynamic support Vancomcyin Cefepime one time dose of Amikacin empiric Tamiflu pending influenza sc monitor renal parameters -ICU care -Aspiration precautions -Trend lactic acid discussed with family poor prognosis HENRIETTA LYON Feb 09, 2018 13:53
[2018-02-09] MEDS ORDERED: [UNRECOGNIZED DRUG - OTHER] IV ONE (14:30)
[2018-02-09] MEDS: Piperacillin/Tazobactam 3.375 GM in D5W 110 ML IVPB SCH ×2 (14:41→21:48)
--- NOTE | 2018-02-09 15:01 | Diagnostic Imaging Report ---
Indication: Nasogastric tube placement Technique: One view of the chest Comparison: none Findings: There is a nasogastric tube, tip which projects over the right lower lung, presumably having undergone the right mainstem bronchus. Bilateral infiltrates are again demonstrated. Impression: Malpositioned nasogastric tube, tip in the right lung. ICU nurse Haleigh notified of this critical value at the time of interpretation
--- NOTE | 2018-02-09 16:29 | Diagnostic Imaging Report ---
Indication: Acute renal failure Technique: Grayscale and duplex images of the kidneys, retroperitoneum, and bladder were obtained. Comparison: none Findings: Right kidney measures 11.7 cm in length. Left kidney measures 10.7 cm in length. Both kidneys demonstrate normal echogenicity. No hydronephrosis. There are bilateral renal cysts. The left kidney demonstrates a large upper pole cyst which measures 11.5 cm long axis dimension smaller right renal cyst noted, measuring 10 mm long axis dimension. The inferior vena cava could not be demonstrated due to patient body habitus. Bladder is empty, the nasal Ruiz catheter. Impression: Negative for hydronephrosis Empty bladder with Ruiz catheter. Large left renal cyst, small right renal cyst incidentally noted.
[2018-02-09] MEDS: Tamsulosin 0.4mg cap ORAL SCH (17:52)
[2018-02-09] MEDS ORDERED: LEVODOPA ORAL SCH (18:00)
[2018-02-09] MEDS ORDERED: CARBIDOPA ORAL SCH (18:00)
[2018-02-09] MEDS ORDERED: Levodopa/Carbidopa 25/100 tab ORAL SCH (18:00)
--- NOTE | 2018-02-09 18:32 | General Progress Note ---
Assessment/Plan Assessment/Plan SEPSIS ON IV ABTX ASPIRATION PNEUMONIA PT HAS POOR PROGNOSIS POOR URINE OUTPUT [facility]CUSE[facility] WITH [facility] Subjective Allergies: Coded Allergies: No Known Allergies (Unverified , 02/08/18) Subjective ICU CRITICARE NOTE PATIENT WAS BROUGHT INTO THE HOSPITAL FOR HYPOXIA AND SEPSIS CURRENTLY HE HAS HIS EYES CLOSED AND DOESNOT RESPONDS TO QUESTIONS HE HAS HISTORY OF DEMENTIA AND ASPIRATION PNEUMONIA AND PT HAS FAMILY HAVE DECLINED NG AND G TUBE FEEDING IN THE PAST Objective Last 24 Hour Vital Signs Date Time Temp Pulse Resp B/P (MAP) Pulse Ox O2 Delivery O2 Flow Rate FiO2 02/09/18 17:00 141 37 117/59 90 Bi-pap 100 02/09/18 16:58 131 35 90 Full Face 100 02/09/18 16:00 143 02/09/18 16:00 99.4 121 33 102/62 96 Bi-pap 100 99.4 02/09/18 16:00 100 02/09/18 15:28 143 35 89 Full Face 100 02/09/18 15:00 138 35 124/84 89 Bi-pap 100 02/09/18 14:00 137 36 121/84 91 Bi-pap 100 02/09/18 13:00 133 35 105/61 88 Bi-pap 100 02/09/18 12:42 139 36 90 Full Face 100 02/09/18 12:00 100 02/09/18 12:00 99.2 136 33 114/58 88 Bi-pap 100 99.2 02/09/18 12:00 135 02/09/18 11:00 133 36 124/66 93 Bi-pap 100 02/09/18 10:59 146 35 91 Full Face 100 02/09/18 10:00 152 34 100/30 88 Bi-pap 100 02/09/18 09:57 168 120/29 02/09/18 09:40 100.9 02/09/18 09:25 146 35 Full Face 100 02/09/18 09:00 146 35 99/62 91 Bi-pap 100 02/09/18 08:41 100.4 02/09/18 08:00 100 02/09/18 08:00 151 34 99/64 96 Bi-pap 100 02/09/18 08:00 124 02/09/18 07:55 158 109/65 02/09/18 07:25 153 35 Facial 100 02/09/18 07:00 100.4 140 29 109/65 94 Bi-pap 100 100.4 02/09/18 06:00 147 32 116/77 96 Bi-pap 100 02/09/18 05:30 153 32 103/57 92 Bi-pap 100 02/09/18 05:00 98.9 144 29 79/41 95 Bi-pap 100 98.9 02/09/18 04:56 142 29 Facial 100 02/09/18 04:30 144 30 86/72 90 Bi-pap 100 02/09/18 04:00 136 29 77/53 90 Bi-pap 100 02/09/18 03:32 151 141/88 02/09/18 03:30 148 30 141/88 90 Bi-pap 100 02/09/18 03:00 145 26 141/98 90 Bi-pap 100 02/09/18 03:00 150 02/09/18 03:00 100 02/09/18 02:45 98.8 150 28 152/86 90 Bi-pap 100 98.8 02/09/18 02:39 163 33 Facial 100 02/09/18 02:30 88/56 02/09/18 02:30 100.0 132 32 89/59 98 Bi-pap 100.0 02/09/18 02:16 184 02/09/18 02:14 174 109/78 02/09/18 01:02 188 02/09/18 01:01 182 102/33 02/09/18 00:53 130 32 98 Facial 100 02/09/18 00:45 98.0 188 32 102/89 98 Bi-pap 98.0 02/08/18 22:35 116 24 Bi-pap 100 02/08/18 22:33 116 24 94 Facial 100 02/08/18 20:33 97 12 Non-Rebreather 10.0 02/08/18 20:21 99.0 97 12 130/79 90 Non-Rebreather 10.0 99.0 Intake and Output 02/08/18 02/09/18 19:00 07:00 Intake Total 150 ml Output Total 60 ml Balance 90 ml Intake Oral 0 ml IV Total 150 ml Output Urine Total 60 ml Laboratory Tests 02/08/18 20:40: White Blood Count 2.4L, Red Blood Count 4.63L, Hemoglobin 14.5, Hematocrit 42.4 , Mean Corpuscular Volume 92, Mean Corpuscular Hemoglobin 31.3H, Mean Corpuscular Hemoglobin Concent 34.1, Red Cell Distribution Width 13.0, Platelet Count 160, Mean Platelet Volume 8.3, Neutrophils (%) (Auto) , Lymphocytes (%) ( Auto) , Monocytes (%) (Auto) , Eosinophils (%) (Auto) , Basophils (%) (Auto) , Differential Total Cells Counted 100, Neutrophils % (Manual) 27L, Lymphocytes % (Manual) 36, Monocytes % (Manual) 8, Eosinophils % (Manual) 0, Basophils % ( Manual) 0, Metamyelocytes % 3H, Band Neutrophils 26H, Nucleated Red Blood Cells 2, Platelet Estimate Adequate, Platelet Morphology Normal, Clumped Platelets Occasional, Polychromasia 1+, Sodium Level 143, Potassium Level 4.2, Chloride Level 105, Carbon Dioxide Level 26, Anion Gap 13, Blood Urea Nitrogen 46H, Creatinine 2.4H, Estimat Glomerular Filtration Rate , Glucose Level 187H, Lactic Acid Level 6.60H, Calcium Level 9.6, Total Bilirubin 1.5H, Direct Bilirubin 0.5H, Aspartate Amino Transf (AST/SGOT) 51H, Alanine Aminotransferase (ALT/SGPT) 24, Alkaline Phosphatase 103, Total Creatine Kinase 734H, Creatine Kinase MB 2.9, Creatine Kinase MB Relative Index 0.3, Troponin I 0.021, Total Protein 6.7, Albumin 2.6L, Globulin 4.1, Albumin/Globulin Ratio 0.6L 02/08/18 20:43: Arterial Blood pH 7.480H, Arterial Blood Partial Pressure CO2 27.5L, Arterial Blood Partial Pressure O2 66.5L, Arterial Blood HCO3 20.1L, Arterial Blood Oxygen Saturation 92.7, Arterial Blood Base Excess -1.9, Isaias Test Positive 02/09/18 01:20: Urine Color Yellow, Urine Appearance Cloudy, Urine pH 5, Urine Specific [place] 1.025, Urine Protein 3+H, Urine Glucose (UA) 1+H, Urine Ketones 1+H, Urine Occult Blood 4+H, Urine Nitrite Negative, Urine Bilirubin 1+H, Urine Ictotest Positive, Urine Urobilinogen 1H, Urine Leukocyte Esterase 1+H, Urine RBC 0-2H, Urine WBC 0-2, Urine Squamous Epithelial Cells Few, Urine Amorphous Sediment ManyH, Urine Bacteria ModerateH, Urine Coarse Granular Casts 5-10H 02/09/18 01:58: Lactic Acid Level 4.80H 02/09/18 05:30: Sodium Level 143, Potassium Level 4.5, Chloride Level 111H, Carbon Dioxide Level 17L, Anion Gap 15, Blood Urea Nitrogen 45H, Creatinine 2.3H, Estimat Glomerular Filtration Rate , Glucose Level 153H, Lactic Acid Level 7.40H, Uric Acid 3.9, Calcium Level 7.9L, Phosphorus Level 3.8, Magnesium Level 1.8, Total Bilirubin 0.9, Gamma Glutamyl Transpeptidase 15, Aspartate Amino Transf (AST/ SGOT) 56H, Alanine Aminotransferase (ALT/SGPT) 21, Alkaline Phosphatase 77, Total Creatine Kinase 694H, Troponin I 0.044, C-Reactive Protein, Quantitative 30.4H, Pro-B-Type Natriuretic Peptide 4579H, Total Protein 4.5#L, Albumin 1.8L, Globulin 2.7, Albumin/Globulin Ratio 0.7L 02/09/18 08:30: Arterial Blood pH 7.080*L, Arterial Blood Partial Pressure CO2 49.5H, Arterial Blood Partial Pressure O2 58.5L, Arterial Blood HCO3 14.4L, Arterial Blood Oxygen Saturation 78.5L, Arterial Blood Base Excess -15.4, Isaias Test Positive 02/09/18 11:00: Lactic Acid Level 6.40H Height (Feet): 5 Height (Inches): 7.00 Weight (Pounds): 147 Cardiovascular: tachycardia Respiratory/Chest: decreased breath sounds Abdomen: non tender, soft Edema: trace edema Jose Lopez MD Feb 09, 2018 18:32
[2018-02-09] MEDS ORDERED: Vancomycin 1 GM in D5W 275 ML IVPB SCH (23:00)
[2018-02-10] VITALS (16 sets, daily range): BP systolic 84–144; BP diastolic 36–94
[2018-02-10] MEDS: dilTIAZem HCl 25mg/5ml Inj IV PRN ×3 (04:22→12:29)
[2018-02-10] MEDS: Piperacillin/Tazobactam 3.375 GM in D5W 110 ML IVPB SCH ×3 (05:51→22:13)
[2018-02-10 06:47] LABS: HEMATOCRIT 35.3 % (42.0-52.0); HEMOGLOBIN 12.4 G/DL (14.2-18.0); MEAN CORPUSCULAR VOLUME 92 FL (80-99); PLATELET COUNT 101 K/UL (150-450); RED BLOOD COUNT 3.85 M/UL (4.70-6.10); RED CELL DISTRIBUTION WIDTH 12.9 % (11.6-14.8); WHITE BLOOD COUNT 3.1 K/UL (4.8-10.8)
[2018-02-10 07:37] LABS: ALANINE AMINOTRANSFERASE 19 U/L (12-78); ALBUMIN 1.9 G/DL (3.4-5.0); ALBUMIN/GLOBULIN RATIO 0.6 (1.0-2.7); ALKALINE PHOSPHATASE 49 U/L (46-116); ANION GAP 16 mmol/L (5-15); ASPARTATE AMINO TRANSFERASE 112 U/L (15-37); BILIRUBIN,TOTAL 1.2 MG/DL (0.2-1.0); BLOOD UREA NITROGEN 54 mg/dL (7-18); CALCIUM 8.5 MG/DL (8.5-10.1); CARBON DIOXIDE 17 MMOL/L (21-32); CHLORIDE 108 MMOL/L (98-107); CREATININE 2.2 MG/DL (0.55-1.30); PHOSPHORUS 2.9 MG/DL (2.5-4.9); POTASSIUM 3.6 MMOL/L (3.5-5.1); SODIUM 141 MMOL/L (136-145)
[2018-02-10 07:40] LABS: BILIRUBIN,DIRECT 0.5 MG/DL (0.0-0.3)
--- NOTE | 2018-02-10 08:33 | Diagnostic Imaging Report ---
Indication: Dyspnea Technique: One view of the chest Comparison: Or 05/04/2018 Findings: Nasogastric tube is coiled in the gastric fundus. There are bilateral infiltrates again demonstrated, appearing unchanged. Pleural spaces are clear. The heart size is normal. Impression: Bilateral infiltrates, unchanged over one day
--- NOTE | 2018-02-10 08:49 | Diagnostic Imaging Report ---
Indication: Post orogastric tube replacement Technique: Supine view of the upper abdomen Comparison: Chest radiograph taken earlier the same day Findings: Improved position of previously demonstrated intrapulmonary orogastric tube, tip now coiled in the expected area of the gastric fundus, proximal port young the gastric esophageal junction. Bowel gas pattern is unremarkable Impression: Improved and now satisfactory position of orogastric tube ICU nurse was previously notified when the exam was performed
[2018-02-10] MEDS ORDERED: Pantoprazole Inj IVP SCH (09:00)
[2018-02-10] MEDS: Heparin 5000 units/ml inj SUBQ SCH ×2 (09:00→21:00)
--- NOTE | 2018-02-10 09:59 | Pulmonolgy Critical Care Note ---
Critical Care - Asmt/Plan Problems: (1) Acute respiratory failure (2) Acute encephalopathy (3) Aspiration pneumonia (4) Acute renal failure (5) Parkinson disease (6) Atrial fibrillation Respiratory: monitor respiratory rate, adjust FIO2, CXR Cardiac: continue to monitor HR/BP Renal: F/U I&O, check electrolytes Infectious Disease: check cultures, continue antibiotics Gastrointestinal: start feedings Endocrine: continue sliding scale insulin Hematologic: monitor H/H, transfuse if hgb<8.5 Neurologic: PRN Ativan, PRN Morphine, keep patient comfortable Affect: PRN ativan Prophylaxis: Protonix Disposition: keep in ICU Time Spent (Minutes): 40 Notes Reviewed: renal, ID Discussed with: nurses, consultants, case sealermanager family - Objective Last 24 Hour Vital Signs Date Time Temp Pulse Resp B/P (MAP) Pulse Ox O2 Delivery O2 Flow Rate FiO2 02/10/18 09:10 134 30 94 Full Face 100 02/10/18 09:00 130 32 92/55 95 Bi-pap 100 02/10/18 08:00 100 02/10/18 08:00 135 02/10/18 08:00 98.3 126 34 97/55 91 Bi-pap 100 98.3 02/10/18 07:10 127 34 89 Full Face 100 02/10/18 07:00 132 26 89/57 97 Bi-pap 100 02/10/18 06:52 132 101/63 02/10/18 06:00 127 26 101/63 97 Bi-pap 100 02/10/18 05:29 114 30 94 Full Face 100 02/10/18 05:00 115 26 93/64 96 Bi-pap 100 02/10/18 04:22 129 117/43 02/10/18 04:00 98.7 124 28 117/43 95 Bi-pap 100 98.7 02/10/18 04:00 126 02/10/18 04:00 100 02/10/18 03:00 120 28 123/79 96 Bi-pap 100 02/10/18 02:50 111 27 95 Full Face 100 02/10/18 02:00 116 26 116/75 96 Bi-pap 100 02/10/18 01:00 114 24 114/63 98 Bi-pap 100 02/10/18 00:17 114 26 96 Full Face 100 02/10/18 00:00 99.0 113 25 116/69 97 Bi-pap 100 99.0 02/10/18 00:00 136 02/10/18 00:00 100 02/09/18 23:00 113 25 113/82 97 Bi-pap 100 02/09/18 22:52 101 27 97 Full Face 100 02/09/18 22:00 113 25 120/62 96 Bi-pap 100 02/09/18 21:00 116 28 129/72 96 Bi-pap 100 02/09/18 20:44 106 25 96 Full Face 100 02/09/18 20:00 106 02/09/18 20:00 100 02/09/18 20:00 98.9 102 28 119/56 94 Bi-pap 100 98.9 02/09/18 19:00 102 28 104/56 94 Bi-pap 100 02/09/18 18:57 103 29 93 Full Face 100 02/09/18 18:00 141 27 124/68 93 Bi-pap 100 02/09/18 17:00 141 37 117/59 90 Bi-pap 100 02/09/18 16:58 131 35 90 Full Face 100 02/09/18 16:00 143 02/09/18 16:00 99.4 121 33 102/62 96 Bi-pap 100 99.4 02/09/18 16:00 100 02/09/18 15:28 143 35 89 Full Face 100 02/09/18 15:00 138 35 124/84 89 Bi-pap 100 02/09/18 14:00 137 36 121/84 91 Bi-pap 100 02/09/18 13:00 133 35 105/61 88 Bi-pap 100 02/09/18 12:42 139 36 90 Full Face 100 02/09/18 12:00 100 02/09/18 12:00 99.2 136 33 114/58 88 Bi-pap 100 99.2 02/09/18 12:00 135 02/09/18 11:00 133 36 124/66 93 Bi-pap 100 02/09/18 10:59 146 35 91 Full Face 100 02/09/18 10:00 152 34 100/30 88 Bi-pap 100 02/09/18 09:57 168 120/29 Status: sedated Condition: critical HEENT: atraumatic Neck: full ROM Lungs: rales, rhonchi Heart: HR/BP stable Abdomen: soft, active bowel sounds Extremities: no C/C/E Decubiti: location Micro: Microbiology Date/Time Source Procedure Growth Status 02/08/18 21:00 Blood Blood Culture - Preliminary NO GROWTH AFTER 24 HOURS Resulted 02/08/18 20:40 Blood Blood Culture - Preliminary NO GROWTH AFTER 24 HOURS Resulted 02/09/18 12:30 Nasopharynx Influenza Types A,B Antigen (LASHAWN) - Final Complete 02/09/18 01:20 Urine,Clean Catch Urine Culture - Preliminary Gram Negative Bacillus 1 Resulted Critical Care - Subjective ROS Limited/Unobtainable: Yes ICU Day: 2 Interval Events: still on bipap EKG Rhythm: Atrial Fibrillation FI02: 100 Vent Support Breath Rate: 14 Vent Support Mode: BiLevel Fluids: 1/2 NS 50 cc/hour I&O: Intake and Output 02/09/18 02/10/18 19:00 07:00 Intake Total 1383.875 ml 875.0 ml Output Total 99 ml 210 ml Balance 1284.875 ml 665.0 ml IV Total 1383.875 ml 875.0 ml Output Urine Total 99 ml 210 ml # Bowel Movements 2 CXR: bilateral infiltrate, Labs: Laboratory Tests Test 02/09/18 11:00 02/09/18 19:20 02/10/18 01:00 02/10/18 06:30 Lactic Acid Level 6.40 mmol/L (0.66-2.22) H 3.80 mmol/L (0.66-2.22) H 2.70 mmol/L (0.66-2.22) H 3.50 mmol/L (0.66-2.22) H White Blood Count 3.1 K/UL (4.8-10.8) L Red Blood Count 3.85 M/UL (4.70-6.10) L Hemoglobin 12.4 G/DL (14.2-18.0) L Hematocrit 35.3 % (42.0-52.0) L Mean Corpuscular Volume 92 FL (80-99) Mean Corpuscular Hemoglobin 32.2 PG (27.0-31.0) H Mean Corpuscular Hemoglobin Concent 35.1 G/DL (32.0-36.0) Red Cell Distribution Width 12.9 % (11.6-14.8) Platelet Count 101 K/UL (150-450) L Mean Platelet Volume 10.1 FL (6.5-10.1) Neutrophils (%) (Auto) % (45.0-75.0) Lymphocytes (%) (Auto) % (20.0-45.0) Monocytes (%) (Auto) % (1.0-10.0) Eosinophils (%) (Auto) % (0.0-3.0) Basophils (%) (Auto) % (0.0-2.0) Differential Total Cells Counted 100 Neutrophils % (Manual) 70 % (45-75) Lymphocytes % (Manual) 13 % (20-45) L Monocytes % (Manual) 2 % (1-10) Eosinophils % (Manual) 0 % (0-3) Basophils % (Manual) 0 % (0-2) Band Neutrophils 15 % (0-8) H Platelet Estimate Decreased L Platelet Morphology Normal Anisocytosis 1+ Sodium Level 141 MMOL/L (136-145) Potassium Level 3.6 MMOL/L (3.5-5.1) Chloride Level 108 MMOL/L (98-107) H Carbon Dioxide Level 17 MMOL/L (21-32) L Anion Gap 16 mmol/L (5-15) H Blood Urea Nitrogen 54 mg/dL (7-18) H Creatinine 2.2 MG/DL (0.55-1.30) H Estimat Glomerular Filtration Rate mL/min (>60) Glucose Level 120 MG/DL (74-106) H Calcium Level 8.5 MG/DL (8.5-10.1) Phosphorus Level 2.9 MG/DL (2.5-4.9) Magnesium Level 1.8 MG/DL (1.8-2.4) Total Bilirubin 1.2 MG/DL (0.2-1.0) H Direct Bilirubin 0.5 MG/DL (0.0-0.3) H Aspartate Amino Transf (AST/SGOT) 112 U/L (15-37) H Alanine Aminotransferase (ALT/SGPT) 19 U/L (12-78) Alkaline Phosphatase 49 U/L (46-116) Troponin I 0.271 ng/mL (0.000-0.056) C-Reactive Protein, Quantitative 38.7 mg/dL (0.00-0.90) H Pro-B-Type Natriuretic Peptide 53015 pg/mL (0-125) H Total Protein 5.3 G/DL (6.4-8.2) L Albumin 1.9 G/DL (3.4-5.0) L Globulin 3.4 g/dL Albumin/Globulin Ratio 0.6 (1.0-2.7) L Cortisol AM Sample Pending Samra Rueda MD Feb 10, 2018 09:59
[2018-02-10] MEDS: Tamsulosin 0.4mg cap ORAL SCH ×2 (10:06→17:30)
[2018-02-10] MEDS: CARBIDOPA ORAL SCH ×3 (10:06→17:30)
[2018-02-10] MEDS: LEVODOPA ORAL SCH ×3 (10:06→17:30)
--- NOTE | 2018-02-10 10:33 | Nephrology Progress Note ---
Assessment/Plan Problem List: (1) Multiorgan failure (2) Acute renal failure (3) Acute encephalopathy (4) Acute respiratory failure (5) Aspiration pneumonia Assessment Sepsis, CXR: Bilateral patchy nodular interstitial and airspace opacities. Nonspecific, could represent inflammatory process, pulmonary edema, less likely neoplasm. lactic Acidosis Acute respiratory failure, on BIPAP , Hypoxic Renal failure, acute on Chronic + Oliguria AFibwith FVR Parkinson disease/dementia pressure ulcer biliary tract obstruction s/p stent custodial resident Plan Plan: Kidney REKHA Negative for hydronephrosis Empty bladder with Ruiz catheter. 2D Echo : Flomax Hemodynamic support Vancomcyin Cefepime one time dose of Amikacin empiric Tamiflu pending influenza sc monitor renal parameters -ICU care -Aspiration precautions -Trend lactic acid discussed with family poor prognosis discussed with Son and Subjective ROS Limited/Unobtainable: Yes Objective Objective Last 24 Hour Vital Signs Date Time Temp Pulse Resp B/P (MAP) Pulse Ox O2 Delivery O2 Flow Rate FiO2 02/10/18 10:00 123 30 92/48 94 Bi-pap 100 02/10/18 09:10 134 30 94 Full Face 100 02/10/18 09:00 130 32 92/55 95 Bi-pap 100 02/10/18 08:00 100 02/10/18 08:00 135 02/10/18 08:00 98.3 126 34 97/55 91 Bi-pap 100 98.3 02/10/18 07:10 127 34 89 Full Face 100 02/10/18 07:00 132 26 89/57 97 Bi-pap 100 02/10/18 06:52 132 101/63 02/10/18 06:00 127 26 101/63 97 Bi-pap 100 02/10/18 05:29 114 30 94 Full Face 100 02/10/18 05:00 115 26 93/64 96 Bi-pap 100 02/10/18 04:22 129 117/43 02/10/18 04:00 98.7 124 28 117/43 95 Bi-pap 100 98.7 02/10/18 04:00 126 02/10/18 04:00 100 02/10/18 03:00 120 28 123/79 96 Bi-pap 100 02/10/18 02:50 111 27 95 Full Face 100 02/10/18 02:00 116 26 116/75 96 Bi-pap 100 02/10/18 01:00 114 24 114/63 98 Bi-pap 100 02/10/18 00:17 114 26 96 Full Face 100 02/10/18 00:00 99.0 113 25 116/69 97 Bi-pap 100 99.0 02/10/18 00:00 136 02/10/18 00:00 100 02/09/18 23:00 113 25 113/82 97 Bi-pap 100 02/09/18 22:52 101 27 97 Full Face 100 02/09/18 22:00 113 25 120/62 96 Bi-pap 100 02/09/18 21:00 116 28 129/72 96 Bi-pap 100 02/09/18 20:44 106 25 96 Full Face 100 02/09/18 20:00 106 02/09/18 20:00 100 02/09/18 20:00 98.9 102 28 119/56 94 Bi-pap 100 98.9 02/09/18 19:00 102 28 104/56 94 Bi-pap 100 02/09/18 18:57 103 29 93 Full Face 100 02/09/18 18:00 141 27 124/68 93 Bi-pap 100 02/09/18 17:00 141 37 117/59 90 Bi-pap 100 02/09/18 16:58 131 35 90 Full Face 100 02/09/18 16:00 143 02/09/18 16:00 99.4 121 33 102/62 96 Bi-pap 100 99.4 02/09/18 16:00 100 02/09/18 15:28 143 35 89 Full Face 100 02/09/18 15:00 138 35 124/84 89 Bi-pap 100 02/09/18 14:00 137 36 121/84 91 Bi-pap 100 02/09/18 13:00 133 35 105/61 88 Bi-pap 100 02/09/18 12:42 139 36 90 Full Face 100 02/09/18 12:00 100 02/09/18 12:00 99.2 136 33 114/58 88 Bi-pap 100 99.2 02/09/18 12:00 135 02/09/18 11:00 133 36 124/66 93 Bi-pap 100 02/09/18 10:59 146 35 91 Full Face 100 Intake and Output 02/09/18 02/10/18 19:00 07:00 Intake Total 1383.875 ml 875.0 ml Output Total 99 ml 210 ml Balance 1284.875 ml 665.0 ml IV Total 1383.875 ml 875.0 ml Output Urine Total 99 ml 210 ml # Bowel Movements 2 Laboratory Tests 02/09/18 11:00: Lactic Acid Level 6.40H 02/09/18 19:20: Lactic Acid Level 3.80H 02/10/18 01:00: Lactic Acid Level 2.70H 02/10/18 06:30: Lactic Acid Level 3.50H, White Blood Count 3.1L, Red Blood Count 3.85L, Hemoglobin 12.4L, Hematocrit 35.3L, Mean Corpuscular Volume 92, Mean Corpuscular Hemoglobin 32.2H, Mean Corpuscular Hemoglobin Concent 35.1, Red Cell Distribution Width 12.9, Platelet Count 101L, Mean Platelet Volume 10.1, Neutrophils (%) (Auto) , Lymphocytes (%) (Auto) , Monocytes (%) (Auto) , Eosinophils (%) (Auto) , Basophils (%) (Auto) , Differential Total Cells Counted 100, Neutrophils % (Manual) 70, Lymphocytes % (Manual) 13L, Monocytes % (Manual) 2, Eosinophils % (Manual) 0, Basophils % (Manual) 0, Band Neutrophils 15H, Platelet Estimate DecreasedL, Platelet Morphology Normal, Anisocytosis 1+, Sodium Level 141, Potassium Level 3.6, Chloride Level 108H, Carbon Dioxide Level 17L, Anion Gap 16H, Blood Urea Nitrogen 54H, Creatinine 2.2H, Estimat Glomerular Filtration Rate , Glucose Level 120H, Calcium Level 8.5, Phosphorus Level 2.9, Magnesium Level 1.8, Total Bilirubin 1.2H, Direct Bilirubin 0.5H, Aspartate Amino Transf (AST/SGOT) 112H, Alanine Aminotransferase (ALT/SGPT) 19, Alkaline Phosphatase 49, Troponin I 0.271H, C-Reactive Protein, Quantitative 38.7H, Pro-B-Type Natriuretic Peptide 24868B, Total Protein 5.3L, Albumin 1.9L, Globulin 3.4, Albumin/Globulin Ratio 0.6L, Cortisol AM Sample [Pending] Height (Feet): 5 Height (Inches): 7.00 Weight (Pounds): 147 General Appearance: other - on BIPAP Cardiovascular: tachycardia Respiratory/Chest: decreased breath sounds, rhonchi - bilaterally Abdomen: distended HENRIETTA LYON Feb 10, 2018 10:33
[2018-02-10] MEDS ORDERED: Tubing IV Secondary IV ONE (11:02)
[2018-02-10] MEDS ORDERED: NS 275ml ONE (11:02)
[2018-02-10] MEDS ORDERED: LORazepam Inj 2mg/ml 1ml IV PRN (13:44)
[2018-02-10] MEDS ORDERED: Albuterol/Ipratropium 3ml neb HHN PRN (13:44)
[2018-02-10] MEDS ORDERED: dilTIAZem HCl 25mg/5ml Inj IV PRN (13:44)
[2018-02-10] MEDS ORDERED: Miralax 17gm pkt ORAL PRN (13:50)
--- NOTE | 2018-02-10 14:56 | General Progress Note ---
Assessment/Plan Assessment/Plan SEPSIS SEVERE WITH NEUTROPENIA ON IV ABTX ASPIRATION PNEUMONIA CHF PT HAS POOR PROGNOSIS WITH MULTIPLE ORGAN FAILURE POOR URINE OUTPUT [facility] WITH [facility] Subjective Allergies: Coded Allergies: No Known Allergies (Unverified , 02/08/18) Subjective ICU CRITICARE NOTE 12/13/2017 HE REMAINS SEDATED DOES NOT FOLLOW COMMANDS SOMETIMES MAKES SMALL NOISE WHEN HE IS MOVED 12/12/2017 PATIENT WAS BROUGHT INTO THE HOSPITAL FOR HYPOXIA AND SEPSIS CURRENTLY HE HAS HIS EYES CLOSED AND DOESNOT RESPONDS TO QUESTIONS HE HAS HISTORY OF DEMENTIA AND ASPIRATION PNEUMONIA AND PT HAS FAMILY HAVE DECLINED NG AND G TUBE FEEDING IN THE PAST Objective Last 24 Hour Vital Signs Date Time Temp Pulse Resp B/P (MAP) Pulse Ox O2 Delivery O2 Flow Rate FiO2 02/10/18 14:39 143 144/94 02/10/18 14:00 98.1 124 34 144/94 98 Bi-pap 100 98.1 02/10/18 12:53 124 34 94 Full Face 100 02/10/18 12:29 132 120/65 02/10/18 12:00 128 02/10/18 12:00 99.6 134 34 120/65 95 Bi-pap 100 99.6 02/10/18 12:00 100 02/10/18 11:04 121 28 93 Full Face 100 02/10/18 11:00 131 33 84/36 97 Bi-pap 100 02/10/18 10:00 123 30 92/48 94 Bi-pap 100 02/10/18 09:10 134 30 94 Full Face 100 02/10/18 09:00 130 32 92/55 95 Bi-pap 100 02/10/18 08:00 100 02/10/18 08:00 135 02/10/18 08:00 98.3 126 34 97/55 91 Bi-pap 100 98.3 02/10/18 07:10 127 34 89 Full Face 100 02/10/18 07:00 132 26 89/57 97 Bi-pap 100 02/10/18 06:52 132 101/63 02/10/18 06:00 127 26 101/63 97 Bi-pap 100 02/10/18 05:29 114 30 94 Full Face 100 02/10/18 05:00 115 26 93/64 96 Bi-pap 100 02/10/18 04:22 129 117/43 02/10/18 04:00 98.7 124 28 117/43 95 Bi-pap 100 98.7 02/10/18 04:00 126 02/10/18 04:00 100 02/10/18 03:00 120 28 123/79 96 Bi-pap 100 02/10/18 02:50 111 27 95 Full Face 100 02/10/18 02:00 116 26 116/75 96 Bi-pap 100 02/10/18 01:00 114 24 114/63 98 Bi-pap 100 02/10/18 00:17 114 26 96 Full Face 100 02/10/18 00:00 99.0 113 25 116/69 97 Bi-pap 100 99.0 02/10/18 00:00 136 02/10/18 00:00 100 02/09/18 23:00 113 25 113/82 97 Bi-pap 100 02/09/18 22:52 101 27 97 Full Face 100 02/09/18 22:00 113 25 120/62 96 Bi-pap 100 02/09/18 21:00 116 28 129/72 96 Bi-pap 100 02/09/18 20:44 106 25 96 Full Face 100 02/09/18 20:00 106 02/09/18 20:00 100 02/09/18 20:00 98.9 102 28 119/56 94 Bi-pap 100 98.9 02/09/18 19:00 102 28 104/56 94 Bi-pap 100 02/09/18 18:57 103 29 93 Full Face 100 02/09/18 18:00 141 27 124/68 93 Bi-pap 100 02/09/18 17:00 141 37 117/59 90 Bi-pap 100 02/09/18 16:58 131 35 90 Full Face 100 02/09/18 16:00 143 02/09/18 16:00 99.4 121 33 102/62 96 Bi-pap 100 99.4 02/09/18 16:00 100 02/09/18 15:28 143 35 89 Full Face 100 02/09/18 15:00 138 35 124/84 89 Bi-pap 100 Intake and Output 02/09/18 02/10/18 19:00 07:00 Intake Total 1383.875 ml 875.0 ml Output Total 99 ml 210 ml Balance 1284.875 ml 665.0 ml IV Total 1383.875 ml 875.0 ml Output Urine Total 99 ml 210 ml # Bowel Movements 2 Laboratory Tests 02/09/18 19:20: Lactic Acid Level 3.80H 02/10/18 01:00: Lactic Acid Level 2.70H 02/10/18 06:30: Lactic Acid Level 3.50H, White Blood Count 3.1L, Red Blood Count 3.85L, Hemoglobin 12.4L, Hematocrit 35.3L, Mean Corpuscular Volume 92, Mean Corpuscular Hemoglobin 32.2H, Mean Corpuscular Hemoglobin Concent 35.1, Red Cell Distribution Width 12.9, Platelet Count 101L, Mean Platelet Volume 10.1, Neutrophils (%) (Auto) , Lymphocytes (%) (Auto) , Monocytes (%) (Auto) , Eosinophils (%) (Auto) , Basophils (%) (Auto) , Differential Total Cells Counted 100, Neutrophils % (Manual) 70, Lymphocytes % (Manual) 13L, Monocytes % (Manual) 2, Eosinophils % (Manual) 0, Basophils % (Manual) 0, Band Neutrophils 15H, Platelet Estimate DecreasedL, Platelet Morphology Normal, Anisocytosis 1+, Sodium Level 141, Potassium Level 3.6, Chloride Level 108H, Carbon Dioxide Level 17L, Anion Gap 16H, Blood Urea Nitrogen 54H, Creatinine 2.2H, Estimat Glomerular Filtration Rate , Glucose Level 120H, Calcium Level 8.5, Phosphorus Level 2.9, Magnesium Level 1.8, Total Bilirubin 1.2H, Direct Bilirubin 0.5H, Aspartate Amino Transf (AST/SGOT) 112H, Alanine Aminotransferase (ALT/SGPT) 19, Alkaline Phosphatase 49, Troponin I 0.271H, C-Reactive Protein, Quantitative 38.7H, Pro-B-Type Natriuretic Peptide 96348B, Total Protein 5.3L, Albumin 1.9L, Globulin 3.4, Albumin/Globulin Ratio 0.6L, Cortisol AM Sample [Pending] Height (Feet): 5 Height (Inches): 7.00 Weight (Pounds): 147 Cardiovascular: tachycardia Respiratory/Chest: decreased breath sounds Abdomen: non tender, decreased bowel sounds Edema: trace edema Jose Lopez MD Feb 10, 2018 14:56
--- NOTE | 2018-02-10 16:38 | Infectious Diseases Prog Note ---
Assessment/Plan Assessment/Plan Abx: Unasyn x1 02/08 Cefepime 02/09- IV Vanco 02/08- Assessment: Severe sepsis- likely 2ry to Gram positive bacteremia and possible PNA (Asp vs HCAP)- r/o endocarditis -u/a WBC 0-2; ucx 70-80 GNR (likely colonizer as neg u/a) -Bcx / GPC pairs and chain- r/o VRE -sp cx p -CXR: Bilateral patchy nodular interstitial and airspace opacities. Nonspecific, could represent inflammatory process, pulmonary edema, less likely neoplasm. -Influenza sc neg -2d Echo:limited study, no ovbious vegetations Acute hypoxic resp failure- on bipap Lactic acidosis, persistent Low grade fever; improving Leukopenia/bandemia; improving ARI -Renal US: no hydronephrosis AFIB with RVR HTN HLD anemia aspiration pneumonia Parkinson disease/dementia pressure ulcer biliary tract obstruction s/p stent care home resident Plan: -Switch IV Vancomcyin #3 to IV Daptomycin 6mg/kg q48hr pending Id and sensi GPC for empiric VRE coverage -CPK -Repeat 2 sets of Bcx -Continue empiric IV Zosyn abx d #2 pending cultures -02/09 SP Cefepime #1, Amikacin x1 -d/c empiric Tamiflu #2 -if persistent bacteremia, will need VERNA -f/u cx -Monitor CBC/BMP, temperatures -ICU care -Aspiration precautions -Trend lactic acid Thank you for this consultation. WIll continue to follow along with you. Discussed with RN. Subjective Allergies: Coded Allergies: No Known Allergies (Unverified , 02/08/18) Subjective transferred out of ICU afeberile> 24hrs bandemia improving bacteremic with GPC pairs and chains Objective Vital Signs Last 24 Hour Vital Signs Date Time Temp Pulse Resp B/P (MAP) Pulse Ox O2 Delivery O2 Flow Rate FiO2 02/10/18 16:00 100 02/10/18 14:44 118 30 93 Full Face 100 02/10/18 14:39 143 144/94 02/10/18 14:00 98.1 124 34 144/94 98 Bi-pap 100 98.1 02/10/18 13:29 141 02/10/18 12:53 124 34 94 Full Face 100 02/10/18 12:29 132 120/65 02/10/18 12:00 128 02/10/18 12:00 99.6 134 34 120/65 95 Bi-pap 100 99.6 02/10/18 12:00 100 02/10/18 11:04 121 28 93 Full Face 100 02/10/18 11:00 131 33 84/36 97 Bi-pap 100 02/10/18 10:00 123 30 92/48 94 Bi-pap 100 02/10/18 09:10 134 30 94 Full Face 100 02/10/18 09:00 130 32 92/55 95 Bi-pap 100 02/10/18 08:00 100 02/10/18 08:00 135 02/10/18 08:00 98.3 126 34 97/55 91 Bi-pap 100 98.3 02/10/18 07:10 127 34 89 Full Face 100 02/10/18 07:00 132 26 89/57 97 Bi-pap 100 02/10/18 06:52 132 101/63 02/10/18 06:00 127 26 101/63 97 Bi-pap 100 02/10/18 05:29 114 30 94 Full Face 100 02/10/18 05:00 115 26 93/64 96 Bi-pap 100 02/10/18 04:22 129 117/43 02/10/18 04:00 98.7 124 28 117/43 95 Bi-pap 100 98.7 02/10/18 04:00 126 02/10/18 04:00 100 02/10/18 03:00 120 28 123/79 96 Bi-pap 100 02/10/18 02:50 111 27 95 Full Face 100 02/10/18 02:00 116 26 116/75 96 Bi-pap 100 02/10/18 01:00 114 24 114/63 98 Bi-pap 100 02/10/18 00:17 114 26 96 Full Face 100 02/10/18 00:00 99.0 113 25 116/69 97 Bi-pap 100 99.0 02/10/18 00:00 136 02/10/18 00:00 100 02/09/18 23:00 113 25 113/82 97 Bi-pap 100 02/09/18 22:52 101 27 97 Full Face 100 02/09/18 22:00 113 25 120/62 96 Bi-pap 100 02/09/18 21:00 116 28 129/72 96 Bi-pap 100 02/09/18 20:44 106 25 96 Full Face 100 02/09/18 20:00 106 02/09/18 20:00 100 02/09/18 20:00 98.9 102 28 119/56 94 Bi-pap 100 98.9 02/09/18 19:00 102 28 104/56 94 Bi-pap 100 02/09/18 18:57 103 29 93 Full Face 100 02/09/18 18:00 141 27 124/68 93 Bi-pap 100 02/09/18 17:00 141 37 117/59 90 Bi-pap 100 02/09/18 16:58 131 35 90 Full Face 100 Height (Feet): 5 Height (Inches): 7.00 Weight (Pounds): 147 Objective General Appearance: cachetic Lines, tubes and drains: peripheral HEENT: normocephalic, atraumatic Neck: non-tender, normal alignment Respiratory/Chest: chest wall non-tender, lungs clear, rhonchi - left, rhonchi - right Breasts: no masses Cardiovascular/Chest: normal peripheral pulses Abdomen: normal bowel sounds Extremities: normal range of motion Microbiology Date/Time Source Procedure Growth Status 02/08/18 21:00 Blood Blood Culture - Preliminary Resulted 02/08/18 20:40 Blood Blood Culture - Preliminary Resulted 02/09/18 12:30 Nasopharynx Influenza Types A,B Antigen (LASHAWN) - Final Complete 02/09/18 01:20 Urine,Clean Catch Urine Culture - Preliminary Gram Negative Bacillus 1 Resulted Laboratory Tests Test 02/09/18 19:20 02/10/18 01:00 02/10/18 06:30 Lactic Acid Level 3.80 mmol/L (0.66-2.22) H 2.70 mmol/L (0.66-2.22) H 3.50 mmol/L (0.66-2.22) H White Blood Count 3.1 K/UL (4.8-10.8) L Red Blood Count 3.85 M/UL (4.70-6.10) L Hemoglobin 12.4 G/DL (14.2-18.0) L Hematocrit 35.3 % (42.0-52.0) L Mean Corpuscular Volume 92 FL (80-99) Mean Corpuscular Hemoglobin 32.2 PG (27.0-31.0) H Mean Corpuscular Hemoglobin Concent 35.1 G/DL (32.0-36.0) Red Cell Distribution Width 12.9 % (11.6-14.8) Platelet Count 101 K/UL (150-450) L Mean Platelet Volume 10.1 FL (6.5-10.1) Neutrophils (%) (Auto) % (45.0-75.0) Lymphocytes (%) (Auto) % (20.0-45.0) Monocytes (%) (Auto) % (1.0-10.0) Eosinophils (%) (Auto) % (0.0-3.0) Basophils (%) (Auto) % (0.0-2.0) Differential Total Cells Counted 100 Neutrophils % (Manual) 70 % (45-75) Lymphocytes % (Manual) 13 % (20-45) L Monocytes % (Manual) 2 % (1-10) Eosinophils % (Manual) 0 % (0-3) Basophils % (Manual) 0 % (0-2) Band Neutrophils 15 % (0-8) H Platelet Estimate Decreased L Platelet Morphology Normal Anisocytosis 1+ Sodium Level 141 MMOL/L (136-145) Potassium Level 3.6 MMOL/L (3.5-5.1) Chloride Level 108 MMOL/L (98-107) H Carbon Dioxide Level 17 MMOL/L (21-32) L Anion Gap 16 mmol/L (5-15) H Blood Urea Nitrogen 54 mg/dL (7-18) H Creatinine 2.2 MG/DL (0.55-1.30) H Estimat Glomerular Filtration Rate mL/min (>60) Glucose Level 120 MG/DL (74-106) H Calcium Level 8.5 MG/DL (8.5-10.1) Phosphorus Level 2.9 MG/DL (2.5-4.9) Magnesium Level 1.8 MG/DL (1.8-2.4) Total Bilirubin 1.2 MG/DL (0.2-1.0) H Direct Bilirubin 0.5 MG/DL (0.0-0.3) H Aspartate Amino Transf (AST/SGOT) 112 U/L (15-37) H Alanine Aminotransferase (ALT/SGPT) 19 U/L (12-78) Alkaline Phosphatase 49 U/L (46-116) Troponin I 0.271 ng/mL (0.000-0.056) C-Reactive Protein, Quantitative 38.7 mg/dL (0.00-0.90) H Pro-B-Type Natriuretic Peptide 88661 pg/mL (0-125) H Total Protein 5.3 G/DL (6.4-8.2) L Albumin 1.9 G/DL (3.4-5.0) L Globulin 3.4 g/dL Albumin/Globulin Ratio 0.6 (1.0-2.7) L Cortisol AM Sample Pending Current Medications Medications (Trade) Dose Ordered Sig/Dax Route PRN Reason Start Time Stop Time Status Last Admin Dose Admin Acetaminophen (Tylenol) 650 mg Q4H PRN ORAL FEVER 02/10/18 13:43 03/11/18 13:42 Albuterol/ Ipratropium (Albuterol/ Ipratropium) 3 ml Q4H PRN HHN Shortness of Breath 02/10/18 13:44 02/14/18 13:43 Carbidopa/Levodopa (Sinemet CR 25/ 100) 1 tab TID ORAL 02/10/18 18:00 03/12/18 08:59 Clopidogrel Bisulfate (Plavix) 75 mg DAILY ORAL 02/11/18 09:00 03/11/18 08:59 Dextrose (Dextrose 50%) 25 ml STAT PRN IV Hypoglycemia 02/11/18 13:43 03/11/18 13:42 Dextrose (Dextrose 50%) 50 ml STAT PRN IV Hypoglycemia 02/10/18 13:43 03/12/18 13:42 Diltiazem HCl (Cardizem) 10 mg Q1H PRN IV heart rate more than 120, 02/10/18 13:44 03/11/18 13:43 02/10/18 14:39 Heparin Sodium (Porcine) (Heparin 5000 units/ml) 5,000 units EVERY 12 HOURS SUBQ 02/10/18 21:00 03/11/18 08:59 Lorazepam (Ativan 2mg/ml 1ml) 2 mg Q2H PRN IV For Anxiety 02/10/18 13:44 02/16/18 13:43 Morphine Sulfate (Morphine Sulfate) 4 mg Q4H PRN IVP Severe Pain (Pain Scale 7-10) 02/10/18 13:44 02/16/18 13:43 Ondansetron HCl (Zofran) 4 mg Q6H PRN IVP Nausea & Vomiting 02/10/18 13:46 03/11/18 13:45 Oseltamivir Phosphate (Tamiflu) 30 mg DAILY ORAL 02/11/18 09:00 02/14/18 12:59 Pantoprazole (Protonix) 40 mg DAILY IVP 02/11/18 09:00 03/12/18 08:59 Piperacillin Sod/ Tazobactam Sod 3.375 gm/Dextrose 110 ml @ 27.5 mls/hr EVERY 8 HOURS IVPB 02/10/18 14:00 02/15/18 13:59 02/10/18 14:03 Polyethylene Glycol (Miralax) 17 gm DAILYPRN PRN ORAL Constipation 02/10/18 13:50 03/12/18 13:49 Sodium Chloride 1,000 ml @ 50 mls/hr Q20H IV 02/10/18 13:43 03/11/18 13:42 02/10/18 14:02 Tamsulosin HCl (Flomax) 0.4 mg BID ORAL 02/10/18 18:00 03/11/18 17:59 Vancomycin HCl (Vanco rx to dose) 1 ea DAILY PRN MISC PER RX PROTOCOL 02/10/18 13:50 03/12/18 13:49 Vancomycin HCl 1 gm/Dextrose 275 ml @ 183.3 mls/ hr Q24H IVPB 02/10/18 23:00 02/14/18 22:59 Jailene Fish M.D. Feb 10, 2018 16:38
--- NOTE | 2018-02-10 17:28 | Cardiology Progress Note ---
Assessment/Plan Assessment/Plan paf with prestnt tachy arf cad remote lad stetn dementia hs of htn lactic acidosis pt a very por candidate for full dose anitcoagualtion althoug dose have an indication getting med thru og tube will dc norvasc use cardizem via og for now is gettign iv dilt up to nwo will use bb if needed prognosis overall appear poor agree with conservative mangaement [id number] Objective Last 24 Hour Vital Signs Date Time Temp Pulse Resp B/P (MAP) Pulse Ox O2 Delivery O2 Flow Rate FiO2 02/10/18 16:00 100 02/10/18 14:44 118 30 93 Full Face 100 02/10/18 14:39 143 144/94 02/10/18 14:00 98.1 124 34 144/94 98 Bi-pap 100 98.1 02/10/18 13:29 141 02/10/18 12:53 124 34 94 Full Face 100 02/10/18 12:29 132 120/65 02/10/18 12:00 128 02/10/18 12:00 99.6 134 34 120/65 95 Bi-pap 100 99.6 02/10/18 12:00 100 02/10/18 11:04 121 28 93 Full Face 100 02/10/18 11:00 131 33 84/36 97 Bi-pap 100 02/10/18 10:00 123 30 92/48 94 Bi-pap 100 02/10/18 09:10 134 30 94 Full Face 100 02/10/18 09:00 130 32 92/55 95 Bi-pap 100 02/10/18 08:00 100 02/10/18 08:00 135 02/10/18 08:00 98.3 126 34 97/55 91 Bi-pap 100 98.3 02/10/18 07:10 127 34 89 Full Face 100 02/10/18 07:00 132 26 89/57 97 Bi-pap 100 02/10/18 06:52 132 101/63 02/10/18 06:00 127 26 101/63 97 Bi-pap 100 02/10/18 05:29 114 30 94 Full Face 100 02/10/18 05:00 115 26 93/64 96 Bi-pap 100 02/10/18 04:22 129 117/43 02/10/18 04:00 98.7 124 28 117/43 95 Bi-pap 100 98.7 02/10/18 04:00 126 02/10/18 04:00 100 02/10/18 03:00 120 28 123/79 96 Bi-pap 100 02/10/18 02:50 111 27 95 Full Face 100 02/10/18 02:00 116 26 116/75 96 Bi-pap 100 02/10/18 01:00 114 24 114/63 98 Bi-pap 100 02/10/18 00:17 114 26 96 Full Face 100 02/10/18 00:00 99.0 113 25 116/69 97 Bi-pap 100 99.0 02/10/18 00:00 136 02/10/18 00:00 100 02/09/18 23:00 113 25 113/82 97 Bi-pap 100 02/09/18 22:52 101 27 97 Full Face 100 02/09/18 22:00 113 25 120/62 96 Bi-pap 100 02/09/18 21:00 116 28 129/72 96 Bi-pap 100 02/09/18 20:44 106 25 96 Full Face 100 02/09/18 20:00 106 02/09/18 20:00 100 02/09/18 20:00 98.9 102 28 119/56 94 Bi-pap 100 98.9 02/09/18 19:00 102 28 104/56 94 Bi-pap 100 02/09/18 18:57 103 29 93 Full Face 100 02/09/18 18:00 141 27 124/68 93 Bi-pap 100 Intake and Output 02/09/18 02/10/18 19:00 07:00 Intake Total 1383.875 ml 875.0 ml Output Total 99 ml 210 ml Balance 1284.875 ml 665.0 ml IV Total 1383.875 ml 875.0 ml Output Urine Total 99 ml 210 ml # Bowel Movements 2 Laboratory Tests Test 02/09/18 19:20 02/10/18 01:00 02/10/18 06:30 02/10/18 16:35 Lactic Acid Level 3.80 mmol/L (0.66-2.22) H 2.70 mmol/L (0.66-2.22) H 3.50 mmol/L (0.66-2.22) H Pending White Blood Count 3.1 K/UL (4.8-10.8) L Red Blood Count 3.85 M/UL (4.70-6.10) L Hemoglobin 12.4 G/DL (14.2-18.0) L Hematocrit 35.3 % (42.0-52.0) L Mean Corpuscular Volume 92 FL (80-99) Mean Corpuscular Hemoglobin 32.2 PG (27.0-31.0) H Mean Corpuscular Hemoglobin Concent 35.1 G/DL (32.0-36.0) Red Cell Distribution Width 12.9 % (11.6-14.8) Platelet Count 101 K/UL (150-450) L Mean Platelet Volume 10.1 FL (6.5-10.1) Neutrophils (%) (Auto) % (45.0-75.0) Lymphocytes (%) (Auto) % (20.0-45.0) Monocytes (%) (Auto) % (1.0-10.0) Eosinophils (%) (Auto) % (0.0-3.0) Basophils (%) (Auto) % (0.0-2.0) Differential Total Cells Counted 100 Neutrophils % (Manual) 70 % (45-75) Lymphocytes % (Manual) 13 % (20-45) L Monocytes % (Manual) 2 % (1-10) Eosinophils % (Manual) 0 % (0-3) Basophils % (Manual) 0 % (0-2) Band Neutrophils 15 % (0-8) H Platelet Estimate Decreased L Platelet Morphology Normal Anisocytosis 1+ Sodium Level 141 MMOL/L (136-145) Potassium Level 3.6 MMOL/L (3.5-5.1) Chloride Level 108 MMOL/L (98-107) H Carbon Dioxide Level 17 MMOL/L (21-32) L Anion Gap 16 mmol/L (5-15) H Blood Urea Nitrogen 54 mg/dL (7-18) H Creatinine 2.2 MG/DL (0.55-1.30) H Estimat Glomerular Filtration Rate mL/min (>60) Glucose Level 120 MG/DL (74-106) H Calcium Level 8.5 MG/DL (8.5-10.1) Phosphorus Level 2.9 MG/DL (2.5-4.9) Magnesium Level 1.8 MG/DL (1.8-2.4) Total Bilirubin 1.2 MG/DL (0.2-1.0) H Direct Bilirubin 0.5 MG/DL (0.0-0.3) H Aspartate Amino Transf (AST/SGOT) 112 U/L (15-37) H Alanine Aminotransferase (ALT/SGPT) 19 U/L (12-78) Alkaline Phosphatase 49 U/L (46-116) Troponin I 0.271 ng/mL (0.000-0.056) C-Reactive Protein, Quantitative 38.7 mg/dL (0.00-0.90) H Pro-B-Type Natriuretic Peptide 81366 pg/mL (0-125) H Total Protein 5.3 G/DL (6.4-8.2) L Albumin 1.9 G/DL (3.4-5.0) L Globulin 3.4 g/dL Albumin/Globulin Ratio 0.6 (1.0-2.7) L Cortisol AM Sample 78.8 UG/DL Microbiology Date/Time Source Procedure Growth Status 02/08/18 21:00 Blood Blood Culture - Preliminary Resulted 02/08/18 20:40 Blood Blood Culture - Preliminary Resulted 02/09/18 12:30 Nasopharynx Influenza Types A,B Antigen (LASHAWN) - Final Complete 02/09/18 01:20 Urine,Clean Catch Urine Culture - Preliminary Gram Negative Bacillus 1 Resulted NANCI FOREMAN Feb 10, 2018 17:28
[2018-02-10] MEDS ORDERED: Metoprolol 5mg/5ml Inj IVP PRN (17:33)
[2018-02-10] MEDS ORDERED: dilTIAZem HCl 30mg tab NG SCH (18:00)
[2018-02-10] MEDS ORDERED: DAPTOmycin 400 MG in NS 55 ML IV SCH ×2 (18:30→20:00)
[2018-02-10] MEDS: dilTIAZem HCl 30mg tab NG SCH (18:33)
[2018-02-10] MEDS ORDERED: DAPTOmycin 400 MG in NS 110 ML IV SCH (20:00)
[2018-02-10] MEDS ORDERED: Vancomycin 1 GM in D5W 275 ML IVPB SCH (23:00)
[2018-02-11] VITALS: BP 136/75
[2018-02-11] MEDS: dilTIAZem HCl 30mg tab NG SCH ×5 (00:10→23:53)
[2018-02-11] MEDS: Morphine Sulfate 4mg/ml Inj IVP PRN (00:47)
--- NOTE | 2018-02-11 03:30 | Consultation ---
DATE OF CONSULTATION: 02/10/2018 CARDIOLOGY CONSULTATION. CONSULTING PHYSICIAN: Gulshan Monge M.D. REFERRING PHYSICIAN: Samra Rueda M.D. REASON FOR REFERRAL: Atrial fibrillation with rapid ventricular response. HISTORY OF PRESENT ILLNESS: This is an elderly gentleman, who is really not able to provide any meaningful history whatsoever. The patient is followed by , resident of a convalescent facility, was urgently transferred to [facility] due to the respiratory issues and was in the intensive care unit atrial fibrillation yesterday, and this consultation requested. The patient responds to intravenous doses of Cardizem, although not for long period of time. He is on the BiPAP therapy. He is not able to respond or communicate in any way, shape, or form at this time and is rather in a poor condition. PAST MEDICAL HISTORY: Positive from a cardiac point of view with a history of coronary artery disease, underwent prior stenting to the left anterior descending artery, history of paroxysmal episodes of atrial fibrillation, previous CVA with lacunar infarcts, felt to be related to labile systemic hypertension, history of orthostatic hypotension related to his medications and he has had history of hyperlipidemia, L4-L5 spinal stenosis, depression that was exacerbated by beta-blockers, history of monoclonal gammopathy of undetermined significance, history of neurogenic claudication, and Lewy body disease with dementia. He has been followed by Dr. Usama Patel at [facility], whose consultation I am referring to for the first of this note. He has had a history of left anterior fascicular block; atypical chest pains; pernicious anemia; systemic hypertension; syncope, possibly orthostatic versus medication induced; and previously has been evaluated for possibility of anticoagulation and there is an indication for that because of atrial fibrillation, but felt to be not the most suitable candidate, nevertheless. MEDICATIONS: His medications at time of transfer from convalescent facility include Tylenol, amlodipine 5 mg 2 times daily, Atrovent, Dexilant, Dulcolax, Exelon patch, mineral oil, Lipitor 20 mg, melatonin, Nephro-Jennifer, Plavix 75 mg, Sinemet CR 25/100 mg two times a day morning and noon, vitamin C, vitamin D, Zantac, and zinc sulfate. ALLERGIES: He is not allergic to any medications. SOCIAL HISTORY: He does not smoke or drink alcoholic beverages. [facility]. REVIEW OF SYSTEMS: Unable to obtain. PHYSICAL EXAMINATION: GENERAL: Shows to be an elderly gentleman, on BiPAP therapy, noncommunicative. NECK: Supple. No jugular venous distention. LUNGS: Clear anteriorly. CARDIAC: Irregularly irregular, tachycardic. No heaves or thrills noted. ABDOMEN: Soft and nontender. Positive bowel sounds. EXTREMITIES: There is no edema. NEUROLOGIC: Not communicative or responsive. LABORATORY AND DIAGNOSTIC DATA: White count of 3.1 with hemoglobin 12.4, and platelet count of 101 down from 160 yesterday. His lactic acid level is 2.5 today and has been as high as 7.4 yesterday and basically . His troponin 0.271 up from 0.044 and his proBNP is 11,703. His INR is 1.0 and PTT of 26. Urinalysis is 0 to 2. His telemetry data shows atrial fibrillation and rapid ventricular response. His echocardiogram is technically difficult study here. There is no significant valvular regurgitation. Venous duplex of the lower extremities negative for DVTs. Unfortunately, I do not see electrocardiogram to review. The [facility] data has been reviewed by me personally. His last nuclear perfusion imaging was sometime ago, nothing recently. His last echocardiogram was also sometime ago, nothing recently. ASSESSMENT AND PLAN: 1. Atrial fibrillation with rapid ventricular response with paroxysmal episodes of the same previously. 2. History of coronary artery disease, status post left anterior descending stent previously. 3. Lewy body disease with advanced dementia. 4. Respiratory insufficiency. 5. History of hypertension. 6. History of orthostatic hypotension. Dr. Rueda, this patient was seen in cardiac consultation. The patient's blood pressure most recently 144/94. He has an orogastric tube, which he is receiving some medications through and I suspect dose of Cardizem, orogastric Cardizem should be administered. Discontinuation of Norvasc in its place. If needed, the patient can be receiving some low doses of beta-blockers as well for help with controlling his heart rate. Really, his prognosis overall is very poor and he really is not a candidate for any aggressive therapy and I for sure favor conservative management of his status. If not needed, DuoNeb should be discontinued as it may contribute to his tachycardia. His cardiac enzymes will be repeated again. He has some evidence of lactic acidosis and some evidence of renal insufficiency with his creatinine up from 2.2. His prior levels at [facility] have been normal at 0.9 indicative of an acute component to his renal insufficiency. Gulshan Monge M.D. DR: Abena JOB#: [id number] CC:
[2018-02-11 04:00] VITALS: BP 95/60
[2018-02-11] MEDS: Piperacillin/Tazobactam 3.375 GM in D5W 110 ML IVPB SCH ×3 (05:59→22:01)
[2018-02-11 06:14] LABS: HEMATOCRIT 35.6 % (42.0-52.0); HEMOGLOBIN 12.6 G/DL (14.2-18.0); MEAN CORPUSCULAR VOLUME 92 FL (80-99); PLATELET COUNT 89 K/UL (150-450); RED BLOOD COUNT 3.87 M/UL (4.70-6.10); RED CELL DISTRIBUTION WIDTH 13.2 % (11.6-14.8); WHITE BLOOD COUNT 4.9 K/UL (4.8-10.8)
[2018-02-11 06:53] LABS: CREATINE KINASE 545 U/L (26-308)
[2018-02-11 06:57] LABS: ALANINE AMINOTRANSFERASE 9 U/L (12-78); ALBUMIN 1.7 G/DL (3.4-5.0); ALBUMIN/GLOBULIN RATIO 0.5 (1.0-2.7); ALKALINE PHOSPHATASE 44 U/L (46-116); ANION GAP 17 mmol/L (5-15); ASPARTATE AMINO TRANSFERASE 115 U/L (15-37); BILIRUBIN,TOTAL 1.1 MG/DL (0.2-1.0); BLOOD UREA NITROGEN 64 mg/dL (7-18); CALCIUM 8.6 MG/DL (8.5-10.1); CARBON DIOXIDE 16 MMOL/L (21-32); CHLORIDE 109 MMOL/L (98-107); POTASSIUM 3.4 MMOL/L (3.5-5.1); SODIUM 141 MMOL/L (136-145)
[2018-02-11 07:00] LABS: BILIRUBIN,DIRECT 0.5 MG/DL (0.0-0.3)
[2018-02-11 08:00] VITALS: BP 112/57
[2018-02-11] MEDS: Tamsulosin 0.4mg cap ORAL SCH ×2 (08:39→18:08)
[2018-02-11] MEDS: CARBIDOPA ORAL SCH ×3 (08:40→18:08)
[2018-02-11] MEDS: Heparin 5000 units/ml inj SUBQ SCH ×2 (08:40→21:00)
[2018-02-11] MEDS: Pantoprazole Inj IVP SCH (08:40)
[2018-02-11] MEDS: LEVODOPA ORAL SCH ×3 (08:40→18:08)
--- NOTE | 2018-02-11 09:32 | Nephrology Progress Note ---
Assessment/Plan Problem List: (1) Multiorgan failure (2) Acute renal failure (3) Acute encephalopathy (4) Acute respiratory failure (5) Aspiration pneumonia Assessment clinically probably slightly improved ! Cr stable Sepsis, CXR: Bilateral patchy nodular interstitial and airspace opacities. Nonspecific, could represent inflammatory process, pulmonary edema, less likely neoplasm. lactic Acidosis Acute respiratory failure, on BIPAP , Hypoxic Renal failure, acute on Chronic + Oliguria AFibwith FVR Parkinson disease/dementia pressure ulcer biliary tract obstruction s/p stent halfway resident Plan Plan: Kidney REKHA Negative for hydronephrosis Empty bladder with Ruiz catheter. 2D Echo : Flomax Hemodynamic support Vancomcyin Cefepime one time dose of Amikacin empiric Tamiflu pending influenza sc monitor renal parameters -ICU care -Aspiration precautions -Trend lactic acid discussed with family poor prognosis discussed with Son and Subjective ROS Limited/Unobtainable: No Objective Objective Last 24 Hour Vital Signs Date Time Temp Pulse Resp B/P (MAP) Pulse Ox O2 Delivery O2 Flow Rate FiO2 02/11/18 08:00 100 02/11/18 08:00 97.6 118 31 112/57 94 Bi-pap 100 97.6 02/11/18 08:00 122 02/11/18 07:16 104 27 93 Full Face 100 02/11/18 06:00 115 95/55 02/11/18 05:02 107 27 95 Full Face 100 02/11/18 04:00 112 02/11/18 04:00 97.0 114 34 95/60 94 Bi-pap 100 97.0 02/11/18 04:00 100 02/11/18 03:11 104 26 94 Full Face 100 02/11/18 01:09 100 34 89 Full Face 100 02/11/18 00:10 96 136/85 02/11/18 00:00 97.5 111 34 136/75 92 Bi-pap 100 97.5 02/11/18 00:00 100 02/11/18 00:00 128 02/10/18 23:53 89 26 89 Full Face 100 02/10/18 20:38 89 28 97 Full Face 100 02/10/18 20:00 83 02/10/18 20:00 100 02/10/18 20:00 97.5 94 28 100/60 92 Bi-pap 100 97.5 02/10/18 19:00 125 28 89 Full Face 100 02/10/18 18:33 116 157/114 02/10/18 18:30 98.2 02/10/18 17:31 100.1 02/10/18 16:50 125 30 94 Full Face 100 02/10/18 16:00 100 02/10/18 16:00 100.1 120 34 138/63 92 Bi-pap 100 100.1 02/10/18 14:44 118 30 93 Full Face 100 02/10/18 14:39 143 144/94 02/10/18 14:00 98.1 124 34 144/94 98 Bi-pap 100 98.1 02/10/18 13:29 141 02/10/18 12:53 124 34 94 Full Face 100 02/10/18 12:29 132 120/65 02/10/18 12:00 128 02/10/18 12:00 99.6 134 34 120/65 95 Bi-pap 100 99.6 02/10/18 12:00 100 02/10/18 11:04 121 28 93 Full Face 100 02/10/18 11:00 131 33 84/36 97 Bi-pap 100 02/10/18 10:00 123 30 92/48 94 Bi-pap 100 Intake and Output 02/10/18 02/11/18 19:00 07:00 Intake Total 780.0 ml 1087.5 ml Output Total 290 ml 300 ml Balance 490.0 ml 787.5 ml Free Water 100 ml IV Total 570.0 ml 847.5 ml Tube Feeding 240 ml Other 110 ml Output Urine Total 290 ml 300 ml # Bowel Movements 2 Laboratory Tests 02/10/18 16:35: Lactic Acid Level 2.80H 02/10/18 20:20: Lactic Acid Level 2.20 02/11/18 04:40: Lactic Acid Level 2.20, White Blood Count 4.9#, Red Blood Count 3.87L, Hemoglobin 12.6L, Hematocrit 35.6L, Mean Corpuscular Volume 92, Mean Corpuscular Hemoglobin 32.7H, Mean Corpuscular Hemoglobin Concent 35.5, Red Cell Distribution Width 13.2, Platelet Count 89L, Mean Platelet Volume 10.3H, Neutrophils (%) (Auto) , Lymphocytes (%) (Auto) , Monocytes (%) (Auto) , Eosinophils (%) (Auto) , Basophils (%) (Auto) , Neutrophils % (Manual) [Pending] , Lymphocytes % (Manual) [Pending], Platelet Estimate [Pending], Platelet Morphology [Pending], Sodium Level 141, Potassium Level 3.4L, Chloride Level 109H, Carbon Dioxide Level 16L, Anion Gap 17H, Blood Urea Nitrogen 64H, Creatinine 2.0H, Estimat Glomerular Filtration Rate , Glucose Level 154H, Calcium Level 8.6, Total Bilirubin 1.1H, Direct Bilirubin 0.5H, Aspartate Amino Transf (AST/SGOT) 115H, Alanine Aminotransferase (ALT/SGPT) 9L, Alkaline Phosphatase 44L, Total Creatine Kinase 545H, Pro-B-Type Natriuretic Peptide 18001D, Total Protein 5.1L, Albumin 1.7L, Globulin 3.4, Albumin/Globulin Ratio 0.5L Height (Feet): 5 Height (Inches): 7.00 Weight (Pounds): 169 General Appearance: other - on BIPAP Cardiovascular: tachycardia Respiratory/Chest: decreased breath sounds Abdomen: soft, distended HENRIETTA LYON Feb 11, 2018 09:32
--- NOTE | 2018-02-11 10:55 | Pulmonology Progress Note ---
Assessment/Plan Problems: (1) Acute respiratory failure (2) Acute encephalopathy (3) Atrial fibrillation (4) Acute renal failure (5) Parkinson disease (6) Dementia Assessment/Plan titrate bipap titrate fio2 respiratory treatment check cxr in am ( unchanged) check electrolytes , renal function worsening dvt prophylaxis family meeting to set the goal fo treatment Subjective ROS Limited/Unobtainable: Yes Interval Events: on bipap Allergies: Coded Allergies: No Known Allergies (Unverified , 02/08/18) Objective Last 24 Hour Vital Signs Date Time Temp Pulse Resp B/P (MAP) Pulse Ox O2 Delivery O2 Flow Rate FiO2 02/11/18 08:00 100 02/11/18 08:00 97.6 118 31 112/57 94 Bi-pap 100 97.6 02/11/18 08:00 122 02/11/18 07:16 104 27 93 Full Face 100 02/11/18 06:00 115 95/55 02/11/18 05:02 107 27 95 Full Face 100 02/11/18 04:00 112 02/11/18 04:00 97.0 114 34 95/60 94 Bi-pap 100 97.0 02/11/18 04:00 100 02/11/18 03:11 104 26 94 Full Face 100 02/11/18 01:09 100 34 89 Full Face 100 02/11/18 00:10 96 136/85 02/11/18 00:00 97.5 111 34 136/75 92 Bi-pap 100 97.5 02/11/18 00:00 100 02/11/18 00:00 128 02/10/18 23:53 89 26 89 Full Face 100 02/10/18 20:38 89 28 97 Full Face 100 02/10/18 20:00 83 02/10/18 20:00 100 02/10/18 20:00 97.5 94 28 100/60 92 Bi-pap 100 97.5 02/10/18 19:00 125 28 89 Full Face 100 02/10/18 18:33 116 157/114 02/10/18 18:30 98.2 02/10/18 17:31 100.1 02/10/18 16:50 125 30 94 Full Face 100 02/10/18 16:00 100 02/10/18 16:00 100.1 120 34 138/63 92 Bi-pap 100 100.1 02/10/18 14:44 118 30 93 Full Face 100 02/10/18 14:39 143 144/94 02/10/18 14:00 98.1 124 34 144/94 98 Bi-pap 100 98.1 02/10/18 13:29 141 02/10/18 12:53 124 34 94 Full Face 100 02/10/18 12:29 132 120/65 02/10/18 12:00 128 02/10/18 12:00 99.6 134 34 120/65 95 Bi-pap 100 99.6 02/10/18 12:00 100 02/10/18 11:04 121 28 93 Full Face 100 02/10/18 11:00 131 33 84/36 97 Bi-pap 100 Intake and Output 02/10/18 02/11/18 19:00 07:00 Intake Total 780.0 ml 1087.5 ml Output Total 290 ml 300 ml Balance 490.0 ml 787.5 ml Free Water 100 ml IV Total 570.0 ml 847.5 ml Tube Feeding 240 ml Other 110 ml Output Urine Total 290 ml 300 ml # Bowel Movements 2 General Appearance: WD/WN HEENT: normocephalic Respiratory/Chest: accessory muscle use, crackles/rales Cardiovascular: normal peripheral pulses, normal rate Abdomen: normal bowel sounds, soft, non tender, no organomegaly Extremities: no cyanosis Neurologic/Psychiatric: client experience manager II-XII grossly normal, no motor/sensory deficits Microbiology Date/Time Source Procedure Growth Status 02/08/18 21:00 Blood Blood Culture - Preliminary Strep Species, Alpha Hemolytic Resulted 02/08/18 20:40 Blood Blood Culture - Preliminary Strep Species, Alpha Hemolytic Resulted 02/09/18 12:30 Nasopharynx Influenza Types A,B Antigen (LASHAWN) - Final Complete 02/09/18 01:20 Urine,Clean Catch Urine Culture - Preliminary Gram Negative Bacillus 1 Resulted Laboratory Tests 02/10/18 16:35: Lactic Acid Level 2.80H 02/10/18 20:20: Lactic Acid Level 2.20 02/11/18 04:40: Lactic Acid Level 2.20, White Blood Count 4.9#, Red Blood Count 3.87L, Hemoglobin 12.6L, Hematocrit 35.6L, Mean Corpuscular Volume 92, Mean Corpuscular Hemoglobin 32.7H, Mean Corpuscular Hemoglobin Concent 35.5, Red Cell Distribution Width 13.2, Platelet Count 89L, Mean Platelet Volume 10.3H, Neutrophils (%) (Auto) , Lymphocytes (%) (Auto) , Monocytes (%) (Auto) , Eosinophils (%) (Auto) , Basophils (%) (Auto) , Differential Total Cells Counted 100, Neutrophils % (Manual) 92H, Lymphocytes % (Manual) 7L, Monocytes % (Manual) 1, Eosinophils % (Manual) 0, Basophils % (Manual) 0, Band Neutrophils 0 , Platelet Estimate DecreasedL, Platelet Morphology Normal, Red Blood Cell Morphology Normal, Sodium Level 141, Potassium Level 3.4L, Chloride Level 109H, Carbon Dioxide Level 16L, Anion Gap 17H, Blood Urea Nitrogen 64H, Creatinine 2.0H, Estimat Glomerular Filtration Rate , Glucose Level 154H, Calcium Level 8.6 , Total Bilirubin 1.1H, Direct Bilirubin 0.5H, Aspartate Amino Transf (AST/SGOT ) 115H, Alanine Aminotransferase (ALT/SGPT) 9L, Alkaline Phosphatase 44L, Total Creatine Kinase 545H, Pro-B-Type Natriuretic Peptide 48784Q, Total Protein 5.1L , Albumin 1.7L, Globulin 3.4, Albumin/Globulin Ratio 0.5L 02/11/18 10:00: Hepatitis A IgM Antibody [Pending], Hepatitis B Surface Antigen [Pending], Hepatitis B Core IgM Antibody [Pending], Hepatitis C Antibody [Pending], HIV (1& 2) Antibody Rapid [Pending] Current Medications Medications (Trade) Dose Ordered Sig/Dax Route PRN Reason Start Time Stop Time Status Last Admin Dose Admin Acetaminophen (Tylenol) 650 mg Q4H PRN ORAL FEVER 02/10/18 13:43 03/11/18 13:42 02/10/18 17:31 Carbidopa/Levodopa (Sinemet CR 25/ 100) 1 tab TID ORAL 02/10/18 18:00 03/12/18 08:59 02/11/18 08:40 Clopidogrel Bisulfate (Plavix) 75 mg DAILY ORAL 02/11/18 09:00 03/11/18 08:59 02/11/18 08:39 Daptomycin 400 mg/ Sodium Chloride 110 ml @ 200 mls/hr Q48H IV 02/10/18 20:00 02/17/18 19:59 02/10/18 20:58 Dextrose (Dextrose 50%) 25 ml STAT PRN IV Hypoglycemia 02/11/18 13:43 03/11/18 13:42 Dextrose (Dextrose 50%) 50 ml STAT PRN IV Hypoglycemia 02/10/18 13:43 03/12/18 13:42 Diltiazem HCl (Cardizem) 60 mg EVERY 6 HOURS NG 02/10/18 18:00 03/12/18 17:59 02/11/18 00:10 Heparin Sodium (Porcine) (Heparin 5000 units/ml) 5,000 units EVERY 12 HOURS SUBQ 02/10/18 21:00 03/11/18 08:59 Lorazepam (Ativan 2mg/ml 1ml) 2 mg Q2H PRN IV For Anxiety 02/10/18 13:44 02/16/18 13:43 Metoprolol Tartrate (Lopressor) 2.5 mg Q4H PRN IVP hr greater than 120 bpm after 02/10/18 17:33 03/12/18 17:32 Morphine Sulfate (Morphine Sulfate) 4 mg Q4H PRN IVP Severe Pain (Pain Scale 7-10) 02/10/18 13:44 02/16/18 13:43 02/11/18 00:47 Ondansetron HCl (Zofran) 4 mg Q6H PRN IVP Nausea & Vomiting 02/10/18 13:46 03/11/18 13:45 Pantoprazole (Protonix) 40 mg DAILY IVP 02/11/18 09:00 03/12/18 08:59 02/11/18 08:40 Piperacillin Sod/ Tazobactam Sod 3.375 gm/Dextrose 110 ml @ 27.5 mls/hr EVERY 8 HOURS IVPB 02/10/18 14:00 02/15/18 13:59 02/11/18 05:59 Polyethylene Glycol (Miralax) 17 gm DAILYPRN PRN ORAL Constipation 02/10/18 13:50 03/12/18 13:49 Potassium Chloride 20 meq/ Sodium Chloride 285 ml @ 142.5 mls/ hr ONCE IVPB 02/11/18 12:00 02/11/18 14:00 Sodium Chloride 1,000 ml @ 50 mls/hr Q20H IV 02/10/18 13:43 03/11/18 13:42 02/11/18 10:11 Tamsulosin HCl (Flomax) 0.4 mg BID ORAL 02/10/18 18:00 03/11/18 17:59 02/11/18 08:39 Samra Rueda MD Feb 11, 2018 10:55
--- NOTE | 2018-02-11 11:46 | Diagnostic Imaging Report ---
Indication: Dyspnea Comparison: 02/10/2018 A single view chest radiograph was obtained. Findings: Patchy infiltrates demonstrated bilaterally versus pulmonary edema. Heart is borderline enlarged. NG tube is in good position. IMPRESSION: Patchy bilateral infiltrates versus pulmonary edema
[2018-02-11 12:00] VITALS: BP 114/50
[2018-02-11] MEDS ORDERED: Potassium Chloride 20 MEQ in NS 275 ML IVPB SCH (12:00)
--- NOTE | 2018-02-11 12:28 | General Progress Note ---
Assessment/Plan Assessment/Plan SEPSIS SEVERE WITH NEUTROPENIA ON IV ABTX ASPIRATION PNEUMONIA CHF PT HAS POOR PROGNOSIS WITH MULTIPLE ORGAN FAILURE URINE OUTPUT SLIGHTLY BETTER DISCUSSED WITH FAMILY AT LENGTH AT BESIDE Subjective Allergies: Coded Allergies: No Known Allergies (Unverified , 02/08/18) Subjective PROGRESS NOTE 12/14/2017 HE REMAINS SEDATED MAKING SOME URINE TAKING OG TUBE FEEDING 12/13/2017 HE REMAINS SEDATED DOES NOT FOLLOW COMMANDS SOMETIMES MAKES SMALL NOISE WHEN HE IS MOVED 12/12/2017 PATIENT WAS BROUGHT INTO THE HOSPITAL FOR HYPOXIA AND SEPSIS CURRENTLY HE HAS HIS EYES CLOSED AND DOESNOT RESPONDS TO QUESTIONS HE HAS HISTORY OF DEMENTIA AND ASPIRATION PNEUMONIA AND PT HAS FAMILY HAVE DECLINED NG AND G TUBE FEEDING IN THE PAST Objective Last 24 Hour Vital Signs Date Time Temp Pulse Resp B/P (MAP) Pulse Ox O2 Delivery O2 Flow Rate FiO2 02/11/18 12:00 100 02/11/18 12:00 97.7 117 30 114/50 91 Bi-pap 100 97.7 02/11/18 11:25 117 29 92 Full Face 100 02/11/18 09:25 111 28 94 Full Face 100 02/11/18 08:00 100 02/11/18 08:00 97.6 118 31 112/57 94 Bi-pap 100 97.6 02/11/18 08:00 122 02/11/18 07:16 104 27 93 Full Face 100 02/11/18 06:00 115 95/55 02/11/18 05:02 107 27 95 Full Face 100 02/11/18 04:00 112 02/11/18 04:00 97.0 114 34 95/60 94 Bi-pap 100 97.0 02/11/18 04:00 100 02/11/18 03:11 104 26 94 Full Face 100 02/11/18 01:09 100 34 89 Full Face 100 02/11/18 00:10 96 136/85 02/11/18 00:00 97.5 111 34 136/75 92 Bi-pap 100 97.5 02/11/18 00:00 100 02/11/18 00:00 128 02/10/18 23:53 89 26 89 Full Face 100 02/10/18 20:38 89 28 97 Full Face 100 02/10/18 20:00 83 02/10/18 20:00 100 02/10/18 20:00 97.5 94 28 100/60 92 Bi-pap 100 97.5 02/10/18 19:00 125 28 89 Full Face 100 02/10/18 18:33 116 157/114 02/10/18 18:30 98.2 02/10/18 17:31 100.1 02/10/18 16:50 125 30 94 Full Face 100 02/10/18 16:00 100 02/10/18 16:00 100.1 120 34 138/63 92 Bi-pap 100 100.1 02/10/18 14:44 118 30 93 Full Face 100 02/10/18 14:39 143 144/94 02/10/18 14:00 98.1 124 34 144/94 98 Bi-pap 100 98.1 02/10/18 13:29 141 02/10/18 12:53 124 34 94 Full Face 100 02/10/18 12:29 132 120/65 Intake and Output 02/10/18 02/11/18 19:00 07:00 Intake Total 780.0 ml 1087.5 ml Output Total 290 ml 300 ml Balance 490.0 ml 787.5 ml Free Water 100 ml IV Total 570.0 ml 847.5 ml Tube Feeding 240 ml Other 110 ml Output Urine Total 290 ml 300 ml # Bowel Movements 2 Laboratory Tests 02/10/18 16:35: Lactic Acid Level 2.80H 02/10/18 20:20: Lactic Acid Level 2.20 02/11/18 04:40: Lactic Acid Level 2.20, White Blood Count 4.9#, Red Blood Count 3.87L, Hemoglobin 12.6L, Hematocrit 35.6L, Mean Corpuscular Volume 92, Mean Corpuscular Hemoglobin 32.7H, Mean Corpuscular Hemoglobin Concent 35.5, Red Cell Distribution Width 13.2, Platelet Count 89L, Mean Platelet Volume 10.3H, Neutrophils (%) (Auto) , Lymphocytes (%) (Auto) , Monocytes (%) (Auto) , Eosinophils (%) (Auto) , Basophils (%) (Auto) , Differential Total Cells Counted 100, Neutrophils % (Manual) 92H, Lymphocytes % (Manual) 7L, Monocytes % (Manual) 1, Eosinophils % (Manual) 0, Basophils % (Manual) 0, Band Neutrophils 0 , Platelet Estimate DecreasedL, Platelet Morphology Normal, Red Blood Cell Morphology Normal, Sodium Level 141, Potassium Level 3.4L, Chloride Level 109H, Carbon Dioxide Level 16L, Anion Gap 17H, Blood Urea Nitrogen 64H, Creatinine 2.0H, Estimat Glomerular Filtration Rate , Glucose Level 154H, Calcium Level 8.6 , Total Bilirubin 1.1H, Direct Bilirubin 0.5H, Aspartate Amino Transf (AST/SGOT ) 115H, Alanine Aminotransferase (ALT/SGPT) 9L, Alkaline Phosphatase 44L, Total Creatine Kinase 545H, Pro-B-Type Natriuretic Peptide 47887N, Total Protein 5.1L , Albumin 1.7L, Globulin 3.4, Albumin/Globulin Ratio 0.5L 02/11/18 10:00: Hepatitis A IgM Antibody [Pending], Hepatitis B Surface Antigen [Pending], Hepatitis B Core IgM Antibody [Pending], Hepatitis C Antibody [Pending], HIV (1& 2) Antibody Rapid Negative Height (Feet): 5 Height (Inches): 7.00 Weight (Pounds): 169 Cardiovascular: regular rhythm Respiratory/Chest: decreased breath sounds, rhonchi - bilaterally Abdomen: soft, tender Edema: trace edema Jose Lopez MD Feb 11, 2018 12:28
--- NOTE | 2018-02-11 13:32 | Infectious Diseases Prog Note ---
Assessment/Plan Assessment/Plan Assessment: Severe sepsis- Gram positive bacteremia -2d Echo:limited study, no ovbious vegetations -Bcx 2/ GPC pairs and chain: alpha hemolytic , doubt VRE, ro StrpV or Pneum ( final Cx pending ) Possible PNA (Asp vs HCAP)- -sp cx p -CXR: Bilateral patchy nodular interstitial and airspace opacities. Nonspecific, could represent inflammatory process, pulmonary edema, less likely neoplasm no evid of UTI -u/a WBC 0-2; ucx 70-80 EColi (likely colonizer as neg u/a) -Influenza sc HIV : neg ARI imrpoivng Acute hypoxic resp failure- on bipap Lactic acidosis, persistent Low grade fever; improving Leukopenia/bandemia; improving ARI -Renal US: no hydronephrosis AFIB with RVR HTN HLD anemia aspiration pneumonia Parkinson disease/dementia pressure ulcer biliary tract obstruction s/p stent halfway resident Plan: - resume Vancomcyin # 4 ( coverage of probable Pneum ) -Continue empiric IV Zosyn abx d # 3 pending cultures -02/11 SP IV IV Daptomycin 6mg/kg q48hr d# 2 and empiric Tamiflu #2 -02/09 SP Cefepime #1, Amikacin x1 -if persistent bacteremia, will need VERNA -f/u cx -Monitor CBC/BMP, temperatures -ICU care -Aspiration precautions -Trend lactic acid -CPK -Repeat 2 sets of Bcx Subjective Allergies: Coded Allergies: No Known Allergies (Unverified , 02/08/18) Objective Vital Signs Last 24 Hour Vital Signs Date Time Temp Pulse Resp B/P (MAP) Pulse Ox O2 Delivery O2 Flow Rate FiO2 02/11/18 12:30 108 28 93 Full Face 100 02/11/18 12:00 117 114/50 02/11/18 12:00 100 02/11/18 12:00 135 02/11/18 12:00 97.7 117 30 114/50 91 Bi-pap 100 97.7 02/11/18 11:25 117 29 92 Full Face 100 02/11/18 09:25 111 28 94 Full Face 100 02/11/18 08:00 100 02/11/18 08:00 97.6 118 31 112/57 94 Bi-pap 100 97.6 02/11/18 08:00 122 02/11/18 07:16 104 27 93 Full Face 100 02/11/18 06:00 115 95/55 02/11/18 05:02 107 27 95 Full Face 100 02/11/18 04:00 112 02/11/18 04:00 97.0 114 34 95/60 94 Bi-pap 100 97.0 02/11/18 04:00 100 02/11/18 03:11 104 26 94 Full Face 100 02/11/18 01:09 100 34 89 Full Face 100 02/11/18 00:10 96 136/85 02/11/18 00:00 97.5 111 34 136/75 92 Bi-pap 100 97.5 02/11/18 00:00 100 02/11/18 00:00 128 02/10/18 23:53 89 26 89 Full Face 100 02/10/18 20:38 89 28 97 Full Face 100 02/10/18 20:00 83 02/10/18 20:00 100 02/10/18 20:00 97.5 94 28 100/60 92 Bi-pap 100 97.5 02/10/18 19:00 125 28 89 Full Face 100 02/10/18 18:33 116 157/114 02/10/18 18:30 98.2 02/10/18 17:31 100.1 02/10/18 16:50 125 30 94 Full Face 100 02/10/18 16:00 100 02/10/18 16:00 100.1 120 34 138/63 92 Bi-pap 100 100.1 02/10/18 14:44 118 30 93 Full Face 100 02/10/18 14:39 143 144/94 02/10/18 14:00 98.1 124 34 144/94 98 Bi-pap 100 98.1 02/10/18 13:29 141 Height (Feet): 5 Height (Inches): 7.00 Weight (Pounds): 169 Microbiology Date/Time Source Procedure Growth Status 02/08/18 21:00 Blood Blood Culture - Preliminary Strep Species, Alpha Hemolytic Resulted 02/08/18 20:40 Blood Blood Culture - Preliminary Strep Species, Alpha Hemolytic Resulted 02/09/18 12:30 Nasopharynx Influenza Types A,B Antigen (LASHAWN) - Final Complete 02/09/18 01:20 Urine,Clean Catch Urine Culture - Final Escherichia Coli Complete Laboratory Tests Test 02/10/18 16:35 02/10/18 20:20 02/11/18 04:40 02/11/18 10:00 Lactic Acid Level 2.80 mmol/L (0.66-2.22) H 2.20 mmol/L (0.66-2.22) 2.20 mmol/L (0.66-2.22) White Blood Count 4.9 K/UL (4.8-10.8) # Red Blood Count 3.87 M/UL (4.70-6.10) L Hemoglobin 12.6 G/DL (14.2-18.0) L Hematocrit 35.6 % (42.0-52.0) L Mean Corpuscular Volume 92 FL (80-99) Mean Corpuscular Hemoglobin 32.7 PG (27.0-31.0) H Mean Corpuscular Hemoglobin Concent 35.5 G/DL (32.0-36.0) Red Cell Distribution Width 13.2 % (11.6-14.8) Platelet Count 89 K/UL (150-450) L Mean Platelet Volume 10.3 FL (6.5-10.1) H Neutrophils (%) (Auto) % (45.0-75.0) Lymphocytes (%) (Auto) % (20.0-45.0) Monocytes (%) (Auto) % (1.0-10.0) Eosinophils (%) (Auto) % (0.0-3.0) Basophils (%) (Auto) % (0.0-2.0) Differential Total Cells Counted 100 Neutrophils % (Manual) 92 % (45-75) H Lymphocytes % (Manual) 7 % (20-45) L Monocytes % (Manual) 1 % (1-10) Eosinophils % (Manual) 0 % (0-3) Basophils % (Manual) 0 % (0-2) Band Neutrophils 0 % (0-8) Platelet Estimate Decreased L Platelet Morphology Normal Red Blood Cell Morphology Normal Sodium Level 141 MMOL/L (136-145) Potassium Level 3.4 MMOL/L (3.5-5.1) L Chloride Level 109 MMOL/L (98-107) H Carbon Dioxide Level 16 MMOL/L (21-32) L Anion Gap 17 mmol/L (5-15) H Blood Urea Nitrogen 64 mg/dL (7-18) H Creatinine 2.0 MG/DL (0.55-1.30) H Estimat Glomerular Filtration Rate mL/min (>60) Glucose Level 154 MG/DL (74-106) H Calcium Level 8.6 MG/DL (8.5-10.1) Total Bilirubin 1.1 MG/DL (0.2-1.0) H Direct Bilirubin 0.5 MG/DL (0.0-0.3) H Aspartate Amino Transf (AST/SGOT) 115 U/L (15-37) H Alanine Aminotransferase (ALT/SGPT) 9 U/L (12-78) L Alkaline Phosphatase 44 U/L (46-116) L Total Creatine Kinase 545 U/L (26-308) H Pro-B-Type Natriuretic Peptide 37609 pg/mL (0-125) H Total Protein 5.1 G/DL (6.4-8.2) L Albumin 1.7 G/DL (3.4-5.0) L Globulin 3.4 g/dL Albumin/Globulin Ratio 0.5 (1.0-2.7) L Hepatitis A IgM Antibody Pending Hepatitis B Surface Antigen Pending Hepatitis B Core IgM Antibody Pending Hepatitis C Antibody Pending HIV (1&2) Antibody Rapid Negative (NEGATIVE) Current Medications Medications (Trade) Dose Ordered Sig/Dax Route PRN Reason Start Time Stop Time Status Last Admin Dose Admin Acetaminophen (Tylenol) 650 mg Q4H PRN ORAL FEVER 02/10/18 13:43 03/11/18 13:42 02/10/18 17:31 Carbidopa/Levodopa (Sinemet CR 25/ 100) 1 tab TID ORAL 02/10/18 18:00 03/12/18 08:59 02/11/18 12:36 Clopidogrel Bisulfate (Plavix) 75 mg DAILY ORAL 02/11/18 09:00 03/11/18 08:59 02/11/18 08:39 Daptomycin 400 mg/ Sodium Chloride 110 ml @ 200 mls/hr Q48H IV 02/10/18 20:00 02/17/18 19:59 02/10/18 20:58 Dextrose (Dextrose 50%) 25 ml STAT PRN IV Hypoglycemia 02/11/18 13:43 03/11/18 13:42 Dextrose (Dextrose 50%) 50 ml STAT PRN IV Hypoglycemia 02/10/18 13:43 03/12/18 13:42 Diltiazem HCl (Cardizem) 60 mg EVERY 6 HOURS NG 02/10/18 18:00 03/12/18 17:59 02/11/18 00:10 Heparin Sodium (Porcine) (Heparin 5000 units/ml) 5,000 units EVERY 12 HOURS SUBQ 02/10/18 21:00 03/11/18 08:59 Lorazepam (Ativan 2mg/ml 1ml) 2 mg Q2H PRN IV For Anxiety 02/10/18 13:44 02/16/18 13:43 Metoprolol Tartrate (Lopressor) 2.5 mg Q4H PRN IVP hr greater than 120 bpm after 02/10/18 17:33 03/12/18 17:32 Morphine Sulfate (Morphine Sulfate) 4 mg Q4H PRN IVP Severe Pain (Pain Scale 7-10) 02/10/18 13:44 02/16/18 13:43 02/11/18 00:47 Ondansetron HCl (Zofran) 4 mg Q6H PRN IVP Nausea & Vomiting 02/10/18 13:46 03/11/18 13:45 Pantoprazole (Protonix) 40 mg DAILY IVP 02/11/18 09:00 03/12/18 08:59 02/11/18 08:40 Piperacillin Sod/ Tazobactam Sod 3.375 gm/Dextrose 110 ml @ 27.5 mls/hr EVERY 8 HOURS IVPB 02/10/18 14:00 02/15/18 13:59 02/11/18 05:59 Polyethylene Glycol (Miralax) 17 gm DAILYPRN PRN ORAL Constipation 02/10/18 13:50 03/12/18 13:49 Potassium Chloride 20 meq/ Sodium Chloride 285 ml @ 142.5 mls/ hr ONCE IVPB 02/11/18 12:00 02/11/18 14:00 02/11/18 12:25 Sodium Chloride 1,000 ml @ 50 mls/hr Q20H IV 02/10/18 13:43 03/11/18 13:42 02/11/18 10:11 Tamsulosin HCl (Flomax) 0.4 mg BID ORAL 02/10/18 18:00 03/11/18 17:59 02/11/18 08:39 Jake Garcia MD Feb 11, 2018 13:32
[2018-02-11] MEDS ORDERED: Vancomycin 1gm/D5W 275ml IVPB SCH ×2 (15:00)
[2018-02-11 16:00] VITALS: BP 118/72
[2018-02-11] MEDS ORDERED: 1/2 NS 1000ml IV ONE ×2 (19:51→20:15)
[2018-02-11] MEDS ORDERED: Tubing IV Secondary IV ONE ×2 (19:51→20:15)
[2018-02-11] MEDS ORDERED: NS 275ml ONE (19:51)
[2018-02-11 20:00] VITALS: BP 102/67
--- NOTE | 2018-02-11 22:35 | Cardiology Progress Note ---
Assessment/Plan Assessment/Plan severe respiratory distress, atrial fibrillation with RVR prognosis is poor Subjective Subjective The patient is moribund on bipap, eyes closed moaning with any touch family present Objective Last 24 Hour Vital Signs Date Time Temp Pulse Resp B/P (MAP) Pulse Ox O2 Delivery O2 Flow Rate FiO2 02/11/18 21:20 118 34 88 Full Face 100 02/11/18 20:00 100 02/11/18 20:00 98.5 67 32 102/67 85 Bi-pap 100 98.5 02/11/18 19:43 124 02/11/18 19:11 115 32 88 Full Face 100 02/11/18 18:18 128 29 85 Full Face 100 02/11/18 18:00 116 117/64 02/11/18 16:30 118 28 88 Full Face 100 02/11/18 16:00 100 02/11/18 16:00 98.2 113 33 118/72 90 Bi-pap 100 98.2 02/11/18 16:00 116 02/11/18 15:09 112 28 88 Full Face 100 02/11/18 12:30 108 28 93 Full Face 100 02/11/18 12:00 117 114/50 02/11/18 12:00 100 02/11/18 12:00 135 02/11/18 12:00 97.7 117 30 114/50 91 Bi-pap 100 97.7 02/11/18 11:25 117 29 92 Full Face 100 02/11/18 09:25 111 28 94 Full Face 100 02/11/18 08:00 100 02/11/18 08:00 97.6 118 31 112/57 94 Bi-pap 100 97.6 02/11/18 08:00 122 02/11/18 07:16 104 27 93 Full Face 100 02/11/18 06:00 115 95/55 02/11/18 05:02 107 27 95 Full Face 100 02/11/18 04:00 112 02/11/18 04:00 97.0 114 34 95/60 94 Bi-pap 100 97.0 02/11/18 04:00 100 02/11/18 03:11 104 26 94 Full Face 100 02/11/18 01:09 100 34 89 Full Face 100 02/11/18 00:10 96 136/85 02/11/18 00:00 97.5 111 34 136/75 92 Bi-pap 100 97.5 02/11/18 00:00 100 02/11/18 00:00 128 02/10/18 23:53 89 26 89 Full Face 100 General Appearance: severe distress, lethargic EENT: PERRL/EOMI Neck: supple, JVD Rhythm: Afib Cardiovascular: tachycardia Respiratory/Chest: accessory muscle use, rhonchi - bilaterally Abdomen: soft Extremities: non-tender Intake and Output 02/10/18 02/11/18 19:00 07:00 Intake Total 780.0 ml 1087.5 ml Output Total 290 ml 300 ml Balance 490.0 ml 787.5 ml Free Water 100 ml IV Total 570.0 ml 847.5 ml Tube Feeding 240 ml Other 110 ml Output Urine Total 290 ml 300 ml # Bowel Movements 2 Laboratory Tests Test 02/11/18 04:40 02/11/18 10:00 White Blood Count 4.9 K/UL (4.8-10.8) # Red Blood Count 3.87 M/UL (4.70-6.10) L Hemoglobin 12.6 G/DL (14.2-18.0) L Hematocrit 35.6 % (42.0-52.0) L Mean Corpuscular Volume 92 FL (80-99) Mean Corpuscular Hemoglobin 32.7 PG (27.0-31.0) H Mean Corpuscular Hemoglobin Concent 35.5 G/DL (32.0-36.0) Red Cell Distribution Width 13.2 % (11.6-14.8) Platelet Count 89 K/UL (150-450) L Mean Platelet Volume 10.3 FL (6.5-10.1) H Neutrophils (%) (Auto) % (45.0-75.0) Lymphocytes (%) (Auto) % (20.0-45.0) Monocytes (%) (Auto) % (1.0-10.0) Eosinophils (%) (Auto) % (0.0-3.0) Basophils (%) (Auto) % (0.0-2.0) Differential Total Cells Counted 100 Neutrophils % (Manual) 92 % (45-75) H Lymphocytes % (Manual) 7 % (20-45) L Monocytes % (Manual) 1 % (1-10) Eosinophils % (Manual) 0 % (0-3) Basophils % (Manual) 0 % (0-2) Band Neutrophils 0 % (0-8) Platelet Estimate Decreased L Platelet Morphology Normal Red Blood Cell Morphology Normal Sodium Level 141 MMOL/L (136-145) Potassium Level 3.4 MMOL/L (3.5-5.1) L Chloride Level 109 MMOL/L (98-107) H Carbon Dioxide Level 16 MMOL/L (21-32) L Anion Gap 17 mmol/L (5-15) H Blood Urea Nitrogen 64 mg/dL (7-18) H Creatinine 2.0 MG/DL (0.55-1.30) H Estimat Glomerular Filtration Rate mL/min (>60) Glucose Level 154 MG/DL (74-106) H Lactic Acid Level 2.20 mmol/L (0.66-2.22) Calcium Level 8.6 MG/DL (8.5-10.1) Total Bilirubin 1.1 MG/DL (0.2-1.0) H Direct Bilirubin 0.5 MG/DL (0.0-0.3) H Aspartate Amino Transf (AST/SGOT) 115 U/L (15-37) H Alanine Aminotransferase (ALT/SGPT) 9 U/L (12-78) L Alkaline Phosphatase 44 U/L (46-116) L Total Creatine Kinase 545 U/L (26-308) H Pro-B-Type Natriuretic Peptide 60336 pg/mL (0-125) H Total Protein 5.1 G/DL (6.4-8.2) L Albumin 1.7 G/DL (3.4-5.0) L Globulin 3.4 g/dL Albumin/Globulin Ratio 0.5 (1.0-2.7) L Hepatitis A IgM Antibody Pending Hepatitis B Surface Antigen Pending Hepatitis B Core IgM Antibody Pending Hepatitis C Antibody Pending HIV (1&2) Antibody Rapid Negative (NEGATIVE) Microbiology Date/Time Source Procedure Growth Status 02/09/18 12:30 Nasopharynx Influenza Types A,B Antigen (LASHAWN) - Final Complete 02/09/18 01:20 Urine,Clean Catch Urine Culture - Final Escherichia Coli Complete Jordyn Childress MD Feb 11, 2018 22:35
--- NOTE | 2018-02-11 23:30 | Consultation ---
DATE OF CONSULTATION: 02/11/2018 HEMATOLOGY/ONCOLOGY CONSULTATION IMPRESSION: Leukopenia thrombocytopenia worsening thrombocytopenia. CONSULTING PHYSICIAN: Jcarlos Wills M.D. REFERRING PHYSICIAN: Samra Rueda M.D. IDENTIFYING DATA: This is a pleasant 82-year-old male who at this time presents to [facility]. He has a WBC count on admission was 2.4 in the past in 2007. He also had a a urinary tract infection also had a WBC count which is 4.2, in addition was noted to have a platelet count 89,009 and has been borderline in the past. His past medical history includes atrial fibrillation, CVA, CAD underlying prior stenting in the left anterior descending artery, hyperlipidemia, orthostatic hypertension, Lewy body dementia. Attention has not followed by Dr. Vergara. at [facility]. He has history of left anterior fascicular block. Atypical chest pain. Noted previously evaluate the possibility of anticoagulation and likely is not a surgical candidate based on prior eval hematology service consulted given blood dyscrasias. Given blood dyscrasias. No history of hepatitis. PAST MEDICAL HISTORY: As noted above. PAST SURGICAL HISTORY: None noted. SOCIAL HISTORY: No alcohol, tobacco, or illicit drug use. Resident of a convalescent home. ALLERGIES: No known drug allergies. MEDICATIONS: Atrovent, amlodipine, Tylenol, Dulcolax, Dexilant patch. REVIEW OF SYSTEMS: Difficult to obtain. PHYSICAL EXAMINATION: VITAL SIGNS: Reviewed. GENERAL: No distress. PULMONARY: Decreased breath sounds. Some crackle sounds. CARDIOVASCULAR: Regular rate. No S3 or S4. ABDOMEN: Soft, nontender, and nondistended. EXTREMITIES: No cyanosis, swelling, or edema noted. LABORATORY DATA: WBC currently 4.9, hemoglobin 10.6, hematocrit 36, and platelet count 94602. ASSESSMENT AND RECOMMENDATIONS: 1. Pancytopenia. Initially, the patient presented with a decreased WBC as well as low platelet and hemoglobin low platelet hemoglobin prior laboratories have been reviewed. Reviewed currently hemoglobin stable however the patient continues to have low platelets. Therefore, sent for hepatitis panel, HIV, and ultrasound of the abdomen. Hepatitis human immunodeficiency virus ultrasound of the abdomen. 2. Anemia due to underlying kidney disease anemia due to underlying kidney disease. 3. Azotemia, potentially dehydration related versus congestive heart failure. 4. Paroxysmal atrial fibrillation, presents tachycardia not a candidate for antic!1oagulation. 5. Dementia and hypertension. Blood pressure . [place] in no cyanosis. Current medications lactic acid has improved. 6. Pressure consultation. Jcarlos Wills M.D. DR: LLOYD JOB#: [id number] CC:
[2018-02-12] VITALS: BP 120/60
[2018-02-12 04:00] VITALS: BP 157/90
[2018-02-12 04:33] LABS: HEMATOCRIT 37.1 % (42.0-52.0); HEMOGLOBIN 13.4 G/DL (14.2-18.0); MEAN CORPUSCULAR VOLUME 93 FL (80-99); PLATELET COUNT 68 K/UL (150-450); RED BLOOD COUNT 3.99 M/UL (4.70-6.10); RED CELL DISTRIBUTION WIDTH 13.9 % (11.6-14.8); WHITE BLOOD COUNT 9.4 K/UL (4.8-10.8)
[2018-02-12 05:16] LABS: ALANINE AMINOTRANSFERASE 14 U/L (12-78); ALBUMIN 1.7 G/DL (3.4-5.0); ALBUMIN/GLOBULIN RATIO 0.6 (1.0-2.7); ALKALINE PHOSPHATASE 90 U/L (46-116); ANION GAP 17 mmol/L (5-15); ASPARTATE AMINO TRANSFERASE 128 U/L (15-37); BLOOD UREA NITROGEN 83 mg/dL (7-18); CALCIUM 8.5 MG/DL (8.5-10.1); CARBON DIOXIDE 16 MMOL/L (21-32); CHLORIDE 108 MMOL/L (98-107); CREATININE 2.6 MG/DL (0.55-1.30); PHOSPHORUS 3.9 MG/DL (2.5-4.9); POTASSIUM 4.2 MMOL/L (3.5-5.1); SODIUM 141 MMOL/L (136-145)
[2018-02-12] MEDS: Piperacillin/Tazobactam 3.375 GM in D5W 110 ML IVPB SCH (05:51)
[2018-02-12] MEDS: dilTIAZem HCl 30mg tab NG SCH ×2 (05:51→12:16)
[2018-02-12 08:00] VITALS: BP 110/42
[2018-02-12] MEDS: LEVODOPA ORAL SCH ×2 (09:13→12:16)
[2018-02-12] MEDS: Pantoprazole Inj IVP SCH (09:13)
[2018-02-12] MEDS: Tamsulosin 0.4mg cap ORAL SCH (09:13)
[2018-02-12] MEDS: CARBIDOPA ORAL SCH ×2 (09:13→12:16)
[2018-02-12] MEDS ORDERED: Tubing IV Secondary IV ONE (09:44)
[2018-02-12] MEDS ORDERED: NS 275ml ONE (09:44)
[2018-02-12] MEDS ORDERED: 1/2 NS 1000ml IV ONE (09:44)
[2018-02-12] MEDS: Morphine Sulfate 4mg/ml Inj IVP PRN (09:52)
[2018-02-12] MEDS ORDERED: Morphine Sulfate 2mg/ml Inj IVP PRN (10:00)
--- NOTE | 2018-02-12 10:43 | Diagnostic Imaging Report ---
Indication:Abdominal pain Technique: Grayscale and duplex Doppler imaging of the abdomen performed. Comparison: None Findings: There is a 10 cm cyst demonstrated within the left kidney. Trace free fluid is present within the abdomen. The liver, demonstrated part of the pancreas, gallbladder, aorta and IVC, spleen appear unremarkable. There is no biliary ductal dilatation identified. Doppler evaluation of the main portal vein shows patency. No hydronephrosis seen. CBD is 2 mm. Impression: 10 cm left renal cysts. Trace free fluid.
[2018-02-12 12:00] VITALS: BP 119/58
--- NOTE | 2018-02-12 12:15 | General Progress Note ---
Assessment/Plan Assessment/Plan SEPSIS SEVERE WITH NEUTROPENIA ON IV ABTX ASPIRATION PNEUMONIA CHF PT HAS POOR PROGNOSIS WITH MULTIPLE ORGAN FAILURE URINE OUTPUT SLIGHTLY BETTER DISCUSSED WITH FAMILY AT LENGTH AT BESIDE TO PROCEED WITH COMFORT CARE Subjective Allergies: Coded Allergies: No Known Allergies (Unverified , 02/08/18) Subjective PROGRESS NOTE DISCUSSED WITH FAMILY AND THEY WISH TO PROCEED WITH COMFORT CARE FOR NOW 12/14/2017 HE REMAINS SEDATED MAKING SOME URINE TAKING OG TUBE FEEDING 12/13/2017 HE REMAINS SEDATED DOES NOT FOLLOW COMMANDS SOMETIMES MAKES SMALL NOISE WHEN HE IS MOVED 12/12/2017 PATIENT WAS BROUGHT INTO THE HOSPITAL FOR HYPOXIA AND SEPSIS CURRENTLY HE HAS HIS EYES CLOSED AND DOESNOT RESPONDS TO QUESTIONS HE HAS HISTORY OF DEMENTIA AND ASPIRATION PNEUMONIA AND PT HAS FAMILY HAVE DECLINED NG AND G TUBE FEEDING IN THE PAST Objective Last 24 Hour Vital Signs Date Time Temp Pulse Resp B/P (MAP) Pulse Ox O2 Delivery O2 Flow Rate FiO2 02/12/18 12:00 98.1 121 29 119/58 86 Bi-pap 100 98.1 02/12/18 10:33 113 28 83 Full Face 100 02/12/18 10:22 97.8 02/12/18 09:52 97.8 02/12/18 09:13 119 30 83 Full Face 100 02/12/18 08:00 100 02/12/18 08:00 102 02/12/18 08:00 97.8 102 35 110/42 88 Bi-pap 100 97.8 02/12/18 06:45 112 31 86 Full Face 100 02/12/18 05:51 113 157/90 02/12/18 04:47 113 31 87 Full Face 100 02/12/18 04:00 100 02/12/18 04:00 98.3 117 30 157/90 88 Bi-pap 100 98.3 02/12/18 03:34 112 02/12/18 02:51 120 32 86 Full Face 100 02/12/18 01:21 113 34 88 Full Face 100 02/12/18 00:00 98.4 113 37 120/60 89 Bi-pap 100 98.4 02/12/18 00:00 100 02/11/18 23:53 125 102/67 02/11/18 23:43 123 02/11/18 22:57 125 32 87 Full Face 100 02/11/18 21:20 118 34 88 Full Face 100 02/11/18 20:00 100 02/11/18 20:00 98.5 67 32 102/67 85 Bi-pap 100 98.5 02/11/18 19:43 124 02/11/18 19:11 115 32 88 Full Face 100 02/11/18 18:18 128 29 85 Full Face 100 02/11/18 18:00 116 117/64 02/11/18 16:30 118 28 88 Full Face 100 02/11/18 16:00 100 02/11/18 16:00 98.2 113 33 118/72 90 Bi-pap 100 98.2 02/11/18 16:00 116 02/11/18 15:09 112 28 88 Full Face 100 02/11/18 12:30 108 28 93 Full Face 100 Intake and Output 02/11/18 02/12/18 19:00 07:00 Intake Total 1791.6660 ml 1319.94 ml Output Total 200 ml 300 ml Balance 1591.6660 ml 1019.94 ml Free Water 60 ml IV Total 1351.6660 ml 699.94 ml Tube Feeding 290 ml 500 ml Other 150 ml 60 ml Output Urine Total 200 ml 300 ml Laboratory Tests 02/12/18 03:50: White Blood Count 9.4#, Red Blood Count 3.99L, Hemoglobin 13.4L, Hematocrit 37.1L, Mean Corpuscular Volume 93, Mean Corpuscular Hemoglobin 33.6H, Mean Corpuscular Hemoglobin Concent 36.1H, Red Cell Distribution Width 13.9, Platelet Count 68L, Mean Platelet Volume 11.1H, Neutrophils (%) (Auto) , Lymphocytes (%) (Auto) , Monocytes (%) (Auto) , Eosinophils (%) (Auto) , Basophils (%) (Auto) , Differential Total Cells Counted 100, Neutrophils % ( Manual) 91H, Lymphocytes % (Manual) 4L, Monocytes % (Manual) 1, Eosinophils % ( Manual) 0, Basophils % (Manual) 0, Myelocytes % 1H, Band Neutrophils 3, Platelet Estimate DecreasedL, Platelet Morphology Normal, Anisocytosis 1+, Sodium Level 141, Potassium Level 4.2, Chloride Level 108H, Carbon Dioxide Level 16L, Anion Gap 17H, Blood Urea Nitrogen 83H, Creatinine 2.6H, Estimat Glomerular Filtration Rate , Glucose Level 218H, Uric Acid 5.6, Calcium Level 8.5, Phosphorus Level 3.9, Magnesium Level 2.2, Total Bilirubin 1.0, Aspartate Amino Transf (AST/SGOT) 128H, Alanine Aminotransferase (ALT/SGPT) 14, Alkaline Phosphatase 90, C-Reactive Protein, Quantitative 31.7H, Total Protein 4.5L, Albumin 1.7L, Globulin 2.8, Albumin/Globulin Ratio 0.6L Height (Feet): 5 Height (Inches): 7.00 Weight (Pounds): 167 General Appearance: lethargic Respiratory/Chest: decreased breath sounds, rhonchi - bilaterally Abdomen: soft Edema: trace edema Jose Lopez MD Feb 12, 2018 12:15
[2018-02-12 12:16] VITALS: BP 119/58
[2018-02-12] MEDS ORDERED: Glycopyrrolate 0.2mg/ml 1ml Vial IV PRN (12:30)
[2018-02-12] MEDS ORDERED: Haloperidol 5mg/ml Inj IM PRN (12:30)
[2018-02-12] MEDS ORDERED: Artificial Tears 1.4% Op Soln BOTH EYES PRN (12:30)
--- NOTE | 2018-02-12 12:36 | Nephrology Progress Note ---
Assessment/Plan Problem List: (1) Multiorgan failure (2) Acute renal failure (3) Acute encephalopathy (4) Acute respiratory failure (5) Aspiration pneumonia Assessment clinically probably slightly improved ! Cr stable Sepsis, CXR: Bilateral patchy nodular interstitial and airspace opacities. Nonspecific, could represent inflammatory process, pulmonary edema, less likely neoplasm. lactic Acidosis Acute respiratory failure, on BIPAP , Hypoxic Renal failure, acute on Chronic + Oliguria AFibwith FVR Parkinson disease/dementia pressure ulcer biliary tract obstruction s/p stent senior care resident Plan Plan: Kidney REKHA Negative for hydronephrosis Empty bladder with Ruiz catheter. 2D Echo : Flomax Hemodynamic support Vancomcyin Cefepime one time dose of Amikacin empiric Tamiflu pending influenza sc monitor renal parameters -ICU care -Aspiration precautions -Trend lactic acid discussed with family poor prognosis discussed with Son and Objective Objective Last 24 Hour Vital Signs Date Time Temp Pulse Resp B/P (MAP) Pulse Ox O2 Delivery O2 Flow Rate FiO2 02/12/18 12:16 121 119/58 02/12/18 12:00 98.1 121 29 119/58 86 Bi-pap 100 98.1 02/12/18 12:00 100 02/12/18 10:33 113 28 83 Full Face 100 02/12/18 10:22 97.8 02/12/18 09:52 97.8 02/12/18 09:13 119 30 83 Full Face 100 02/12/18 08:00 100 02/12/18 08:00 102 02/12/18 08:00 97.8 102 35 110/42 88 Bi-pap 100 97.8 02/12/18 06:45 112 31 86 Full Face 100 02/12/18 05:51 113 157/90 02/12/18 04:47 113 31 87 Full Face 100 02/12/18 04:00 100 02/12/18 04:00 98.3 117 30 157/90 88 Bi-pap 100 98.3 02/12/18 03:34 112 02/12/18 02:51 120 32 86 Full Face 100 02/12/18 01:21 113 34 88 Full Face 100 02/12/18 00:00 98.4 113 37 120/60 89 Bi-pap 100 98.4 02/12/18 00:00 100 02/11/18 23:53 125 102/67 02/11/18 23:43 123 02/11/18 22:57 125 32 87 Full Face 100 02/11/18 21:20 118 34 88 Full Face 100 02/11/18 20:00 100 02/11/18 20:00 98.5 67 32 102/67 85 Bi-pap 100 98.5 02/11/18 19:43 124 02/11/18 19:11 115 32 88 Full Face 100 02/11/18 18:18 128 29 85 Full Face 100 02/11/18 18:00 116 117/64 02/11/18 16:30 118 28 88 Full Face 100 02/11/18 16:00 100 02/11/18 16:00 98.2 113 33 118/72 90 Bi-pap 100 98.2 02/11/18 16:00 116 02/11/18 15:09 112 28 88 Full Face 100 Intake and Output 02/11/18 02/12/18 19:00 07:00 Intake Total 1791.6660 ml 1319.94 ml Output Total 200 ml 300 ml Balance 1591.6660 ml 1019.94 ml Free Water 60 ml IV Total 1351.6660 ml 699.94 ml Tube Feeding 290 ml 500 ml Other 150 ml 60 ml Output Urine Total 200 ml 300 ml Laboratory Tests 02/12/18 03:50: White Blood Count 9.4#, Red Blood Count 3.99L, Hemoglobin 13.4L, Hematocrit 37.1L, Mean Corpuscular Volume 93, Mean Corpuscular Hemoglobin 33.6H, Mean Corpuscular Hemoglobin Concent 36.1H, Red Cell Distribution Width 13.9, Platelet Count 68L, Mean Platelet Volume 11.1H, Neutrophils (%) (Auto) , Lymphocytes (%) (Auto) , Monocytes (%) (Auto) , Eosinophils (%) (Auto) , Basophils (%) (Auto) , Differential Total Cells Counted 100, Neutrophils % ( Manual) 91H, Lymphocytes % (Manual) 4L, Monocytes % (Manual) 1, Eosinophils % ( Manual) 0, Basophils % (Manual) 0, Myelocytes % 1H, Band Neutrophils 3, Platelet Estimate DecreasedL, Platelet Morphology Normal, Anisocytosis 1+, Sodium Level 141, Potassium Level 4.2, Chloride Level 108H, Carbon Dioxide Level 16L, Anion Gap 17H, Blood Urea Nitrogen 83H, Creatinine 2.6H, Estimat Glomerular Filtration Rate , Glucose Level 218H, Uric Acid 5.6, Calcium Level 8.5, Phosphorus Level 3.9, Magnesium Level 2.2, Total Bilirubin 1.0, Aspartate Amino Transf (AST/SGOT) 128H, Alanine Aminotransferase (ALT/SGPT) 14, Alkaline Phosphatase 90, C-Reactive Protein, Quantitative 31.7H, Total Protein 4.5L, Albumin 1.7L, Globulin 2.8, Albumin/Globulin Ratio 0.6L Height (Feet): 5 Height (Inches): 7.00 Weight (Pounds): 167 HENRIETTA LYON Feb 12, 2018 12:36
--- NOTE | 2018-02-12 12:38 | Pulmonology Progress Note ---
Assessment/Plan Problems: (1) Acute respiratory failure (2) Acute encephalopathy (3) Atrial fibrillation (4) Acute renal failure (5) Parkinson disease (6) Dementia Assessment/Plan Dr. Lopez and I talked to family members, the sons and the at the bed site. they don't want him to suffer any more. He has been in this condition for the last 6 years. they know he is not going to get better. they asking for comfort care and end of life care, including stopping bipap and starting morphine drip. will start morphine drip and then stop the BIPAP, morphine drip witll be titrated to pts comfort. titrate fio2 respiratory treatment Subjective ROS Limited/Unobtainable: No Constitutional: Reports: no symptoms HEENT: Repors: no symptoms Respiratory: Reports: no symptoms Allergies: Coded Allergies: No Known Allergies (Unverified , 02/08/18) Objective Last 24 Hour Vital Signs Date Time Temp Pulse Resp B/P (MAP) Pulse Ox O2 Delivery O2 Flow Rate FiO2 02/12/18 12:16 121 119/58 02/12/18 12:00 98.1 121 29 119/58 86 Bi-pap 100 98.1 02/12/18 12:00 100 02/12/18 10:33 113 28 83 Full Face 100 02/12/18 10:22 97.8 02/12/18 09:52 97.8 02/12/18 09:13 119 30 83 Full Face 100 02/12/18 08:00 100 02/12/18 08:00 102 02/12/18 08:00 97.8 102 35 110/42 88 Bi-pap 100 97.8 02/12/18 06:45 112 31 86 Full Face 100 02/12/18 05:51 113 157/90 02/12/18 04:47 113 31 87 Full Face 100 02/12/18 04:00 100 02/12/18 04:00 98.3 117 30 157/90 88 Bi-pap 100 98.3 02/12/18 03:34 112 02/12/18 02:51 120 32 86 Full Face 100 02/12/18 01:21 113 34 88 Full Face 100 02/12/18 00:00 98.4 113 37 120/60 89 Bi-pap 100 98.4 02/12/18 00:00 100 02/11/18 23:53 125 102/67 02/11/18 23:43 123 02/11/18 22:57 125 32 87 Full Face 100 02/11/18 21:20 118 34 88 Full Face 100 02/11/18 20:00 100 02/11/18 20:00 98.5 67 32 102/67 85 Bi-pap 100 98.5 02/11/18 19:43 124 02/11/18 19:11 115 32 88 Full Face 100 02/11/18 18:18 128 29 85 Full Face 100 02/11/18 18:00 116 117/64 02/11/18 16:30 118 28 88 Full Face 100 02/11/18 16:00 100 02/11/18 16:00 98.2 113 33 118/72 90 Bi-pap 100 98.2 02/11/18 16:00 116 02/11/18 15:09 112 28 88 Full Face 100 Intake and Output 02/11/18 02/12/18 19:00 07:00 Intake Total 1791.6660 ml 1319.94 ml Output Total 200 ml 300 ml Balance 1591.6660 ml 1019.94 ml Free Water 60 ml IV Total 1351.6660 ml 699.94 ml Tube Feeding 290 ml 500 ml Other 150 ml 60 ml Output Urine Total 200 ml 300 ml General Appearance: WD/WN HEENT: normocephalic, atraumatic Respiratory/Chest: chest wall non-tender, crackles/rales Cardiovascular: normal peripheral pulses, normal rate Abdomen: normal bowel sounds, soft, non tender Extremities: no cyanosis Skin: no rash Neurologic/Psychiatric: rattling machine tender II-XII grossly normal Lymphatic: no neck adenopathy Microbiology Date/Time Source Procedure Growth Status 02/10/18 20:40 Blood Blood Culture - Preliminary NO GROWTH AFTER 24 HOURS Resulted 02/10/18 20:20 Blood Blood Culture - Preliminary NO GROWTH AFTER 24 HOURS Resulted Laboratory Tests 02/12/18 03:50: White Blood Count 9.4#, Red Blood Count 3.99L, Hemoglobin 13.4L, Hematocrit 37.1L, Mean Corpuscular Volume 93, Mean Corpuscular Hemoglobin 33.6H, Mean Corpuscular Hemoglobin Concent 36.1H, Red Cell Distribution Width 13.9, Platelet Count 68L, Mean Platelet Volume 11.1H, Neutrophils (%) (Auto) , Lymphocytes (%) (Auto) , Monocytes (%) (Auto) , Eosinophils (%) (Auto) , Basophils (%) (Auto) , Differential Total Cells Counted 100, Neutrophils % ( Manual) 91H, Lymphocytes % (Manual) 4L, Monocytes % (Manual) 1, Eosinophils % ( Manual) 0, Basophils % (Manual) 0, Myelocytes % 1H, Band Neutrophils 3, Platelet Estimate DecreasedL, Platelet Morphology Normal, Anisocytosis 1+, Sodium Level 141, Potassium Level 4.2, Chloride Level 108H, Carbon Dioxide Level 16L, Anion Gap 17H, Blood Urea Nitrogen 83H, Creatinine 2.6H, Estimat Glomerular Filtration Rate , Glucose Level 218H, Uric Acid 5.6, Calcium Level 8.5, Phosphorus Level 3.9, Magnesium Level 2.2, Total Bilirubin 1.0, Aspartate Amino Transf (AST/SGOT) 128H, Alanine Aminotransferase (ALT/SGPT) 14, Alkaline Phosphatase 90, C-Reactive Protein, Quantitative 31.7H, Total Protein 4.5L, Albumin 1.7L, Globulin 2.8, Albumin/Globulin Ratio 0.6L Current Medications Medications (Trade) Dose Ordered Sig/Dax Route PRN Reason Start Time Stop Time Status Last Admin Dose Admin Acetaminophen (Tylenol) 650 mg Q4H PRN ORAL FEVER 02/10/18 13:43 03/11/18 13:42 02/10/18 17:31 Carbidopa/Levodopa (Sinemet CR 25/ 100) 1 tab TID ORAL 02/10/18 18:00 03/12/18 08:59 02/12/18 12:16 Clopidogrel Bisulfate (Plavix) 75 mg DAILY ORAL 02/11/18 09:00 03/11/18 08:59 02/12/18 09:13 Dextrose (Dextrose 50%) 25 ml STAT PRN IV Hypoglycemia 02/11/18 13:43 03/11/18 13:42 Dextrose (Dextrose 50%) 50 ml STAT PRN IV Hypoglycemia 02/10/18 13:43 03/12/18 13:42 Diltiazem HCl (Cardizem) 60 mg EVERY 6 HOURS NG 02/10/18 18:00 03/12/18 17:59 02/12/18 12:16 Lorazepam (Ativan 2mg/ml 1ml) 2 mg Q2H PRN IV For Anxiety 02/10/18 13:44 02/16/18 13:43 Metoprolol Tartrate (Lopressor) 2.5 mg Q4H PRN IVP hr greater than 120 bpm after 02/10/18 17:33 03/12/18 17:32 Morphine Sulfate (Morphine Sulfate) 2 mg Q4H PRN IVP Moderate Pain (Pain Scale 4-6) 02/12/18 10:00 02/19/18 09:59 Morphine Sulfate (Morphine Sulfate) 4 mg Q4H PRN IVP Severe Pain (Pain Scale 7-10) 02/10/18 13:44 02/16/18 13:43 02/12/18 09:52 Ondansetron HCl (Zofran) 4 mg Q6H PRN IVP Nausea & Vomiting 02/10/18 13:46 03/11/18 13:45 Pantoprazole (Protonix) 40 mg DAILY IVP 02/11/18 09:00 03/12/18 08:59 02/12/18 09:13 Piperacillin Sod/ Tazobactam Sod 3.375 gm/Dextrose 110 ml @ 27.5 mls/hr EVERY 8 HOURS IVPB 02/10/18 14:00 02/15/18 13:59 02/12/18 05:51 Polyethylene Glycol (Miralax) 17 gm DAILYPRN PRN ORAL Constipation 02/10/18 13:50 03/12/18 13:49 Sodium Chloride 1,000 ml @ 50 mls/hr Q20H IV 02/10/18 13:43 03/11/18 13:42 02/12/18 05:50 Tamsulosin HCl (Flomax) 0.4 mg BID ORAL 02/10/18 18:00 03/11/18 17:59 02/12/18 09:13 Vancomycin HCl (Vanco rx to dose) 1 ea DAILY PRN MISC Per rx protocol 02/11/18 13:45 03/13/18 13:44 Vancomycin HCl 1 gm/Dextrose 275 ml @ 183.708 mls/hr Q24H IVPB 02/11/18 15:00 02/16/18 14:59 02/11/18 15:03 Samra Rueda MD Feb 12, 2018 12:38
[2018-02-12] MEDS ORDERED: PCA Morphine 1mg/ml 30 ML IV PRN (13:00)
[2018-02-12] MEDS ORDERED: Rate Change Narcotic Drip MISC PRN (13:00)
[2018-02-12] MEDS ORDERED: Morphine Sulfate 10mg/ml Inj IVP SCH (13:00)
[2018-02-12] MEDS ORDERED: Morphine Sulfate 4mg/ml Inj SUBQ PRN (13:00)
--- NOTE | 2018-02-12 16:42 | General Progress Note ---
Assessment/Plan Assessment/Plan ASSESSMENT AND RECOMMENDATIONS: 1. Pancytopenia. Initially, the patient presented with a decreased WBC as well as low platelet and hemoglobin low platelet hemoglobin prior laboratories have been reviewed. --> viral studies are negative thus far, hepatitis and hiv, us of the abd unrevealing --> heparin has been stopped, and no further labs 2. Anemia due to underlying kidney disease anemia due to underlying kidney disease. 3. Azotemia, potentially dehydration related versus congestive heart failure. 4. Paroxysmal atrial fibrillation, presents tachycardia not a candidate for anticoagulation. 5. Dementia and hypertension. Blood pressure under better control 6. 10cm renal cysts 7. NO further labs Subjective Constitutional: Denies: no symptoms, chills, diaphoresis, fever, malaise, weakness, other HEENT: Denies: no symptoms, eye pain, blurred vision, tearing, double vision, ear pain, ear discharge, nose pain, nose congestion, throat pain, throat swelling, mouth pain, mouth swelling, other Cardiovascular: Denies: no symptoms, chest pain, edema, irregular heart rate, lightheadedness, palpitations, syncope, other Respiratory: Denies: no symptoms, cough, orthopnea, shortness of breath, SOB with excertion, SOB at rest, sputum, stridor, wheezing, other Gastrointestinal/Abdominal: Denies: no symptoms, abdomen distended, abdominal pain, black stools, tarry stools, blood in stool, constipated, diarrhea, difficulty swallowing, nausea, poor appetite, poor fluid intake, rectal bleeding , vomiting, other Genitourinary: Denies: no symptoms, burning, discharge, frequency, flank pain, hematuria, incontinence, pain, urgency, other Neurologic/Psychiatric: Denies: no symptoms, anxiety, depressed, emotional problems, headache, numbness, paresthesia, pre-existing deficit, seizure, tingling, tremors, weakness, other Endocrine: Denies: no symptoms, excessive sweating, flushing, intolerance to cold, intolerance to heat, increased hunger, increased thirst, increased urine, unexplained weight gain, unexplained weight loss, other Hematologic/Lymphatic: Denies: no symptoms, anemia, easy bleeding, easy bruising, other Allergies: Coded Allergies: No Known Allergies (Unverified , 02/08/18) Subjective no events overnight, monitoring labs Objective Last 24 Hour Vital Signs Date Time Temp Pulse Resp B/P (MAP) Pulse Ox O2 Delivery O2 Flow Rate FiO2 02/12/18 16:00 2.0 02/12/18 16:00 87 Nasal Cannula 2.0 02/12/18 16:00 71 02/12/18 14:00 98.1 02/12/18 13:30 98.1 02/12/18 13:29 98.1 02/12/18 13:05 98.1 02/12/18 12:30 120 30 84 Full Face 100 02/12/18 12:16 121 119/58 02/12/18 12:00 98.1 121 29 119/58 86 Bi-pap 100 98.1 02/12/18 12:00 100 02/12/18 12:00 107 02/12/18 10:33 113 28 83 Full Face 100 02/12/18 10:22 97.8 02/12/18 09:52 97.8 02/12/18 09:13 119 30 83 Full Face 100 02/12/18 08:00 100 02/12/18 08:00 102 02/12/18 08:00 97.8 102 35 110/42 88 Bi-pap 100 97.8 02/12/18 06:45 112 31 86 Full Face 100 02/12/18 05:51 113 157/90 02/12/18 04:47 113 31 87 Full Face 100 02/12/18 04:00 100 02/12/18 04:00 98.3 117 30 157/90 88 Bi-pap 100 98.3 02/12/18 03:34 112 02/12/18 02:51 120 32 86 Full Face 100 02/12/18 01:21 113 34 88 Full Face 100 02/12/18 00:00 98.4 113 37 120/60 89 Bi-pap 100 98.4 02/12/18 00:00 100 02/11/18 23:53 125 102/67 02/11/18 23:43 123 02/11/18 22:57 125 32 87 Full Face 100 02/11/18 21:20 118 34 88 Full Face 100 02/11/18 20:00 100 02/11/18 20:00 98.5 67 32 102/67 85 Bi-pap 100 98.5 02/11/18 19:43 124 02/11/18 19:11 115 32 88 Full Face 100 02/11/18 18:18 128 29 85 Full Face 100 02/11/18 18:00 116 117/64 Intake and Output 02/11/18 02/12/18 19:00 07:00 Intake Total 1791.6660 ml 1319.94 ml Output Total 200 ml 300 ml Balance 1591.6660 ml 1019.94 ml Free Water 60 ml IV Total 1351.6660 ml 699.94 ml Tube Feeding 290 ml 500 ml Other 150 ml 60 ml Output Urine Total 200 ml 300 ml Laboratory Tests 02/12/18 03:50: White Blood Count 9.4#, Red Blood Count 3.99L, Hemoglobin 13.4L, Hematocrit 37.1L, Mean Corpuscular Volume 93, Mean Corpuscular Hemoglobin 33.6H, Mean Corpuscular Hemoglobin Concent 36.1H, Red Cell Distribution Width 13.9, Platelet Count 68L, Mean Platelet Volume 11.1H, Neutrophils (%) (Auto) , Lymphocytes (%) (Auto) , Monocytes (%) (Auto) , Eosinophils (%) (Auto) , Basophils (%) (Auto) , Differential Total Cells Counted 100, Neutrophils % ( Manual) 91H, Lymphocytes % (Manual) 4L, Monocytes % (Manual) 1, Eosinophils % ( Manual) 0, Basophils % (Manual) 0, Myelocytes % 1H, Band Neutrophils 3, Platelet Estimate DecreasedL, Platelet Morphology Normal, Anisocytosis 1+, Sodium Level 141, Potassium Level 4.2, Chloride Level 108H, Carbon Dioxide Level 16L, Anion Gap 17H, Blood Urea Nitrogen 83H, Creatinine 2.6H, Estimat Glomerular Filtration Rate , Glucose Level 218H, Uric Acid 5.6, Calcium Level 8.5, Phosphorus Level 3.9, Magnesium Level 2.2, Total Bilirubin 1.0, Aspartate Amino Transf (AST/SGOT) 128H, Alanine Aminotransferase (ALT/SGPT) 14, Alkaline Phosphatase 90, C-Reactive Protein, Quantitative 31.7H, Total Protein 4.5L, Albumin 1.7L, Globulin 2.8, Albumin/Globulin Ratio 0.6L Height (Feet): 5 Height (Inches): 7.00 Weight (Pounds): 167 General Appearance: no apparent distress EENT: normal ENT inspection Neck: normal alignment Cardiovascular: regular rhythm Respiratory/Chest: normal breath sounds Abdomen: normal bowel sounds Extremities: non-tender Kleynberg,Jcarlos L. MD Feb 12, 2018 16:42
[2018-02-12] MEDS ORDERED: Narcotic Shift Volume MISC SCH (19:00)
--- NOTE | 2018-02-13 10:52 | Cardiology Report ---
APPROVED REPORT EXAM: Two-dimensional and M-mode echocardiogram with Doppler and color Doppler. INDICATION Congestive Heart Failure Technically difficult and limited study due to patient on ventilator and contracted. Ejection fraction is grossly normal . M-mode measurements of left ventricle not obtainable due to cardiac position (angle). Normal left ventricular chamber size. Left ventricular ejection fraction could not be determined. All other cardiac chamber sizes are within normal limits. focal aortic valve sclerosis with reduced cusp excursion. thickened mitral valve leaflets with normal excursion. mitral annulus and aortic root calcification. Pulmonic valve not visualized. Normal tricuspid valve structure. Subcostal views not obtainable. A color flow and spectral Doppler study was performed and revealed: Trace aortic insufficiency. Peak aortic valve gradient of 13 mmHg and a mean of 5 mmHg. Aortic valve area 1.6 cm2 calculated by continuity equation. No mitral regurgitation. Left ventricular diastolic function could not be determined. Mild tricuspid regurgitation. Tricuspid systolic velocities suggests peak right ventricular systolic pressure of 35 mmHg, consistent with mild pulmonary hypertension.
--- NOTE | 2018-02-13 13:29 | Discharge Summary ---
Discharge Summary Discharge Summary Discharge Summary SUMMARY DATE OF ADMISSION: 02/08/2018 DATE OF EXPIRATION : 02/12/2018 REASON FOR ADMISSION: 82 years old male with past medical history significant for advanced dementia, CVA, coronary artery disease hypertension, dementia, Parkinson disease was brought from the long term facility for evaluation due to hypoxia. Patient was started on supplemental oxygen by paramedics. Patient with a prior history of aspiration pneumonia. Patient with DNR/DNI status per POLST. On 100 % nonrebreathing mask in ED, pulse oximetry was 90%. Patient was subsequently placed on BiPAP. Laboratory workup revealed WBC 2.4. BUN 46, creatinine 2.4. Troponin was negative. Lactic acid 6.6. Urinalysis with evidence of UTI. Chest x-ray revealed bilateral patchy nodular interstitial and airspace opacities, likely representing pulmonary edema or inflammatory process. EKG showed atrial fibrillation with heart rate of 116. Repeated chest x-ray showed increased consolidation of bilateral lower infiltrates. Patient was admitted with diagnosis of acute hypoxemic respiratory failure requiring BiPAP, pneumonia, acute renal failure, lactic acidosis, acute encephalopathy, atrial fibrillation with rapid ventricular response, Parkinson disease, dementia CONSULTANTS: enrollment management director Dr. Monge pulmonary Dr. Rueda ID specialist Dr. Rice bias cutting machine operator vertical Dr. Menchaca bag liner/oncologist Dr. Wills [facility] COURSE: Patient was admitted to [facility]. Patient was on the BiPAP. ABG on 100% of FiO2 revealed worsening hypoxemia and acidosis. Patient DNR/DNI status per POLST. Pulmonary toilet provided as needed. Patient was started on empiric antibiotic as directed by ID specialist. Blood culture revealed Strep pneumonia. Sputum culture revealed yeast. Echocardiogram did not revealed vegetation. It showed grossly normal ejection fraction and right ventricular systolic pressure of 35. Infectious disease doctor recommended to repeat blood culture and if consistently positive, then consider VERNA. Patient was on the IV hydration. Renal ultrasound revealed no hydronephrosis and normal bilateral kidneys echogenicity. Venous duplex bilateral lower extremity was negative. Renal parameters and electrolytes were closely monitored. Electrolytes were corrected as needed. Nephrotoxics were avoided. Renal parameters without significant changes. Microgrinder Operator closely followed. Patient exhibited atrial fibrillation with rapid ventricular response. Rate was controlled with Cardizem. Network Planner closely followed and was consider to add beta melia if Cardizem would not be sufficient. Per enrollment management director, patient was a poor candidate for full anticoagulation. Auto Washer closely followed. Counts were closely monitored. Heparin was stopped due to thrombocytopenia. Hemoglobin and hematocrit were closely monitored , no need for transfusion. According to bag liner, patient had anemia of underlying kidney disease. Patient had poor prognosis, given multiple prior comorbidities and current multiorgan failure : hypoxia with respiratory failure, decreased urinary output with renal failure, atrial fibrillation with rapid ventricular response , pancytopenia persistent lactic acidosis, acute encephalopathy. After discussion with the family, family decided to stop all interventions and proceed with comfort care. Family members understood poor prognosis and futility of further care. All medications were stopped . Patient was started on the morphine drip. Patient and was pronounced at 17:02 on 02/12/18. Cause of cardiopulmonary arrest. FINAL DIAGNOSES: Severe sepsis with bacteremia Bacteremia with Strep pneumonia Acute hypoxemic respiratory failure requiring BiPAP Aspiration pneumonia Paroxysmal atrial fibrillation with rapid ventricular response Persistent lactic acidosis Acute renal failure Acute encephalopathy Multiorgan failure Coronary artery disease Dementia History of hypertension Pancytopenia Anemia of underlying kidney disease I have been assigned to dictate discharge summary for this account. I was not involved in the patient's management. Maria Elena Benavides NP ([place]) Feb 13, 2018 13:29
== END 2018-02-12 17:02 | disposition expired | DRG 871 ==
LOC: EDBD 20:21 → EMR 21:32 → ICU 23:27 → EDBEDREQ 02-09 01:25 → EDBEDREQSVC 02-09 01:44 → EDBEDREQ 02-09 01:49 → 2W 02-10 12:57
PROC: 5A09357 Assistance with Respiratory Ventilation, Less than 24 Consecutive Hours, Continuous Positive Airway Pressure (ICD-10-PCS; principal; 2018-02-08)
DX: A40.3 Sepsis due to Streptococcus pneumoniae (principal); J69.0 Pneumonitis due to inhalation of food and vomit; G93.41 Metabolic encephalopathy; J96.01 Acute respiratory failure with hypoxia; R65.20 Severe sepsis without septic shock; G93.40 Encephalopathy, unspecified; N17.9 Acute kidney failure, unspecified; N18.9 Chronic kidney disease, unspecified; I12.9 Hypertensive chronic kidney disease with stage 1 through stage 4 chronic kidney disease, or unspecified chronic kidney disease; G20 Parkinson's disease; F02.80 Dementia in other diseases classified elsewhere, unspecified severity, without behavioral disturbance, psychotic disturbance, mood disturbance, and anxiety; I48.0 Paroxysmal atrial fibrillation; D63.1 Anemia in chronic kidney disease; I25.10 Atherosclerotic heart disease of native coronary artery without angina pectoris; Z95.5 Presence of coronary angioplasty implant and graft; D69.6 Thrombocytopenia, unspecified; Z51.5 Encounter for palliative care; Z66 Do not resuscitate
CPT/HCPCS: 36415; 36600; 71045; 74018; 76700; 76770; 80053; 80069; 81003; 82248; 82533; 82550; 82553; 82803; 82977; 83605; 83735; 83880; 84100; 84484; 84550; 85007; 85025; 86140; 86703; 86705; 86709; 86710; 86803; 87040; 87070; 87086; 87181; 87205; 87340; 93005; 93306; 93970; 94660; 94664; 99285